=== PATIENT | female | born 2000 ===

== ENCOUNTER 2021-03-21 13:28 | Outpatient (REF) | payer BC, MEDICAID, SELFPAY ==
[2021-03-22 01:25] LABS: CT PCR NOT DETECTED (Not Detect.); NG PCR NOT DETECTED (Not Detect.)
[2021-03-22 08:03] LABS: HBc Num1 0.13 S/CO (0.00-0.79); HIV AB/AG Nonreactive (Nonreactive); HIV Num 1 0.09 S/CO (0.00-0.99); Hepatitis B Core Antibody Nonreactive (Nonreactive); ~HepC Num1 0.49 S/CO (0.00-0.79); ~Hepatitis C Antibody Nonreactive (Nonreactive)
[2021-03-22 08:09] LABS: Syphilis Screen Nonreactive (Nonreactive)
== END 2021-03-21 13:29 | disposition home or self-care (01) ==
LOC: HO.LAB 13:28
PROVIDERS: Advanced Practice Midwife; Visit Provider Advanced Practice Midwife
DX: Z01.419 Encounter for gynecological examination (general) (routine) without abnormal findings (principal); Z01.84 Encounter for antibody response examination; Z11.3 Encounter for screening for infections with a predominantly sexual mode of transmission; Z20.2 Contact with and (suspected) exposure to infections with a predominantly sexual mode of transmission
CPT/HCPCS: 36415; 86704; 86780; 86803; 87389; 87491; 87591; 88142

== ENCOUNTER → 2021-04-11 13:57 | Outpatient (BNVA) | payer BC, MEDICAID, SELFPAY | PROVIDERS: Visit Provider Advanced Practice Midwife | DX: Z30.46 Encounter for surveillance of implantable subdermal contraceptive (principal) | CPT/HCPCS: 11982 ==

== ENCOUNTER 2022-02-09 12:11 | Outpatient (REF) | payer MEDICAID, SELFPAY ==
[2022-02-09 14:38] LABS: Syphilis Screen Nonreactive (Nonreactive)
[2022-02-09 17:53] LABS: CT PCR NOT DETECTED (Not Detect.); NG PCR NOT DETECTED (Not Detect.)
[2022-02-10 15:13] LABS: BV Int Neg Control Negative (Negative); BV Int Pos Control Positive (Positive)
[2022-02-12 07:32] LABS: HBc Num1 0.15 S/CO (0.00-0.79); HIV AB/AG Nonreactive (Nonreactive); HIV Num 1 0.08 S/CO (0.00-0.99); Hepatitis B Core Antibody Nonreactive (Nonreactive); ~HepC Num1 0.16 S/CO (0.00-0.79); ~Hepatitis C Antibody Nonreactive (Nonreactive)
== END 2022-02-09 12:12 | disposition home or self-care (01) ==
LOC: HO.LAB 12:11
PROVIDERS: Visit Provider Advanced Practice Midwife
DX: Z01.419 Encounter for gynecological examination (general) (routine) without abnormal findings (principal); Z11.3 Encounter for screening for infections with a predominantly sexual mode of transmission; Z11.4 Encounter for screening for human immunodeficiency virus [HIV]; Z11.8 Encounter for screening for other infectious and parasitic diseases; Z11.59 Encounter for screening for other viral diseases
CPT/HCPCS: 36415; 86704; 86780; 86803; 87389; 87480; 87491; 87510; 87591; 87660; 99212

== ENCOUNTER 2022-09-20 16:20 | Emergency (ER) | payer OTHER, SELFPAY ==
[2022-09-20 16:31] VITALS: BP 147/78; PULSE 120; RESP 18; TEMP 37.1; O2SAT 97; BMI 23.6
--- NOTE | 2022-09-20 16:31 | ED.GENADULT ---
HPI - General Adult General Chief complaint: Skin/Abscess/Foreign Body Stated complaint: Rash all over body Time Seen by Provider: 09/20/22 16:36 Source: patient Mode of arrival: ambulatory History of Present Illness HPI narrative: 22yo F w/PMHx eczema, asthma/COPD, presenting to the ED c/o diffuse pruritic erythematous rash diffusely over body x few days. Admits has been worsening/spreading. Denies new medications, insect bites, new exposures/travel, SOB/sore throat, difficulty breathing Onset (ago): day(s) Related Data Previous Rx's Medication Instructions Recorded metronidazole 500 mg tablet 500 mg PO BID 7 days #14 tabs 02/12/22 cetirizine 10 mg capsule (Zyrtec) 10 mg PO DAILY 14 days #14 caps 09/20/22 doxycycline hyclate 100 mg tablet 100 mg PO BID 7 days #14 tabs 09/20/22 hydrocortisone 1 % topical 1 appl topical BID PRN skin 09/20/22 ointment (Anti-Itch irritation #453.6 grams (hydrocortisone)) ketorolac 10 mg tablet 10 mg PO TID PRN pain 5 days #15 09/20/22 tabs prednisone 10 mg tablet 10 mg PO DAILY #20 tabs 09/20/22 Allergies Allergy/AdvReac Type Severity Reaction Status Date / Time shellfish derived Allergy Severe ANAPHYLAXIS Verified 02/09/22 12:03 [SHELLFISH DERIVED] animal dander [PET DANDER] Allergy Unknown ANAPHYLAXIS Verified 02/09/22 12:03 Penicillins [PENICILLINS] Allergy Unknown ANAPHYLAXIS Verified 02/09/22 12:03 nuts Allergy Severe Anaphylaxis Uncoded 02/09/22 12:03 Review of Systems Review of Systems: Constitutional: No Fever, No Chills ENT/Mouth: No Ear Pain, No Nasal Congestion, No sore throat, No Rhinorrhea, No Swallowing Difficulty Cardiovascular: No Chest Pain, No SOB Respiratory: No Cough, No Sputum, No Wheezing Gastrointestinal: No Nausea, No Vomiting, No Abdominal pain Genitourinary: No Dysuria, No Urinary Frequency, No Hematuria, No Flank Pain Musculoskeletal: No joint pain, No Myalgias, No Joint Swelling Skin: No Skin Lesions, + rash Neuro: No Weakness, No Numbness, No Paresthesias Yes all other systems are reviewed and are negative Constitutional: Constitutional: Reports as per [facility] Past Medical History Attestation statement: The following information was validated with the patient. Medical History Asthma COPD (chronic obstructive pulmonary disease) Eczema IgA deficiency Social History Social History Alcohol intake: never Patient Tobacco Use Status: Never used Tobacco Advance Directives: No Advance Directives Information Provided: No Current occupational status: employed Sexual orientation: Straight/Heterosexual Gender identity: Female Physical Exam ED Vital Signs: Vital Signs - 24 hr 09/20/22 16:31 09/20/22 19:38 Temperature 98.7 F Pulse Rate 120 H 85 Respiratory Rate 18 18 Blood Pressure 147/78 H 129/70 Pulse Oximetry 97 100 Oxygen Delivery Method Room Air Room Air BMI result Body Mass Index 23.6 Const General: cooperative, healthy appearing and no acute distress Orientation/consciousness: patient oriented x3 Limitations: no limitations HENMT Head: Yes normal to inspection and Yes atraumatic Ears: hearing grossly normal bilaterally General nose exam: Normal external nose present Face and sinus: Yes normal facial exam Mouth: Normal oral and palatal mucosa present and no drooling Throat: Yes posterior oropharynx normal and Yes uvula midline Eyes General: appearance normal, both eyes and all related structures EOM: EOMs intact bilaterally Neck Neck: Yes normal visual inspection and Yes no meningeal signs Resp Effort & Inspection: normal respiratory effort and no respiratory distress Auscultation: clear to auscultation bilaterally and no wheezes Cardio Rate: tachycardic Heart sounds: S1 normal heart sound present and S2 normal heart sound present GI Palpation (GI): Soft to palpation and nontender Skin Other: +Diffuse erythematous rash with overlying excoriations noted. Diffuse dry skin/ flaking. No sloughing. No drainage. Bilateral lower extremities with erythema and warmth. No mucous membrane, palm or sole involvement Neuro General: patient oriented x3, tone normal and no meningeal signs Gait exam (Neuro): Normal gait present Extrem General: Yes normal to inspection Course Course Course Narrative: -1819-- noted leukocytosis of 14.5. Lactic acid negative. ESR/CRP WNL >> will give empiric IV doxycycline -2015-- vital signs and symptoms improving after IVF, Benadryl, and Solu-Medrol. Mother now at bedside, discussed results, and needed close follow-up with Dermatology. Results discussed with patient including worrisome signs and symptoms and strict return precautions, and when to return to the emergency department. They verbalized understanding and feel safe for discharge at this time. Medications Administered Discontinued Medications Generic Name Dose Route Start Last Admin Trade Name Mary PRN Reason Stop Dose Admin Diphenhydramine HCl 50 mg 09/20/22 16:50 09/20/22 17:06 Diphenhydramine Hcl 50 Mg/Ml Vial IVPUSH 09/20/22 16:51 50 mg ONCE ONE Administration Sodium Chloride 1,000 mls @ 999 mls/hr 09/20/22 17:00 09/20/22 18:49 Ns IV 09/20/22 18:00 Infused .Q1H1M FRANKI Infusion Doxycycline Hyclate 100 mg/ 250 mls @ 166.67 mls/hr 09/20/22 18:15 09/20/22 18:35 Sodium Chloride IV 09/20/22 19:44 166.67 mls/hr ONCE ONE Administration Sodium Chloride 1,000 mls @ 999 mls/hr 09/20/22 18:30 09/20/22 18:39 Ns IV 09/20/22 19:30 999 mls/hr .Q1H1M FRANKI Administration Ketorolac Tromethamine 15 mg 09/20/22 19:11 09/20/22 19:25 Ketorolac Tromethamine 15 Mg/Ml Vial IVPUSH 09/20/22 19:12 15 mg ONCE ONE Administration Methylprednisolone Sodium Succinate 125 mg 09/20/22 17:33 09/20/22 18:27 Methylprednisolone Sod Succ 125 Mg/2 Ml Vial IVPUSH 09/20/22 17:34 125 mg ONCE ONE Administration Medical Decision Making Medical Decision Making MDM Narrative: 22yo F w/PMHx eczema, asthma/COPD, presenting to the ED c/o diffuse pruritic erythematous rash diffusely over body x few days. On exam tachycardic likely from discomfort, physical exam as above. No mucous membrane, palm or sole involvement. No sloughing. Concern for eczema/psoriasis with overlying cellulitis to lower extremities. Low suspicion for severe sepsis at this time. low suspicion for SJS/TENS or viral rash Case discussed with Dr. Faust also evaluated patient and is in agreement with plan Plan: Labs, lactic/blood culture, IVF Please refer to course for remaining clinical decision making, interpretation of labs/imaging results, and discussions with consultants and/or family members. Differential Diagnosis Differential Diagnoses: The differential diagnosis associated with the presentation includes As above Admission/Observation Consideration of admission/observation: Escalation of care including admission/observation considered Consult Healthcare Provider Management of the patient was discussed with: Auto Design Checker Lab Data MDM Lab Attestation statement: I reviewed the patient's lab results. 09/20/22 17:00 09/20/22 17:00 Labs: Lab Results 09/20/22 09/20/22 09/20/22 Range/Units 17:00 17:00 17:00 WBC 14.5 H (4.8-10.8) X10*3/uL RBC 5.44 (4.20-5.50) X10*6/uL Hgb 14.0 (12.0-16.0) g/dl Hct 44.0 (37.0-47.0) % MCV 80.9 (80.0-98.0) fL MCH 25.7 L (27.0-33.0) pg MCHC 31.8 (31.0-35.0) g/dl RDW 14.5 (11.0-16.0) % Plt Count 422 H (160-400) X10*3/uL MPV 10.2 (9.4-12.3) fL Immature Gran % (Auto) 0.5 H (0.0-0.4) % Neut % (Auto) 75.2 H (45-73) % Lymph % (Auto) 12.6 L (20-40) % [place] % (Auto) 6.0 (2-11) % Eos % (Auto) 5.2 H (0-4) % Baso % (Auto) 0.5 (0-2) % Lymph # (Auto) 1.8 (1.2-4.9) X10*3/uL [place] # (Auto) 0.9 (0.1-1.2) X10*3/uL Eos # (Auto) 0.8 H (0.0-0.4) X10*3/uL Baso # (Auto) 0.1 (0.0-0.2) X10*3/uL Abs Immat Gran (auto) 0.07 H (0.00-0.03) X10*3/uL Absolute Neuts (auto) 10.9 H (2.0-8.3) x10*3/uL Absolute Nucleated RBC 0.000 (0.0-0.012) X10*3/uL Nucleated RBC % (auto) 0.0 (0.0-0.2) /100WBC ESR 2 (0-20) MM/HR Sodium 144 (135-145) mmol/L Potassium 3.8 (3.3-5.1) mmol/L Chloride 107 (96-108) mmol/L Carbon Dioxide 27 (22-29) mmol/L Anion Gap 14 (12-20) BUN 10 (9-16) mg/dL Creatinine 0.75 (0.5-1.4) mg/dL Estim Creat Clear Calc 88.7 Estimated GFR > 60 Random Glucose 75 (60-115) mg/dL Lactic Acid (0.5-2.0) mmol/L Calcium 9.3 (8.4-10.2) mg/dL Total Bilirubin 0.5 (0.0-1.0) mg/dL Direct Bilirubin < 0.2 (0.0-0.5) mg/dL AST 35 H (5-31) U/L ALT 27 (0-31) U/L Alkaline Phosphatase 65 (39-117) U/L C-Reactive Protein 0.48 (< or = 0.50) mg/dL Total Protein 7.2 (6.5-8.0) g/dL Albumin 4.1 (3.5-5.0) g/dL 09/20/22 Range/Units 17:00 WBC (4.8-10.8) X10*3/uL RBC (4.20-5.50) X10*6/uL Hgb (12.0-16.0) g/dl Hct (37.0-47.0) % MCV (80.0-98.0) fL MCH (27.0-33.0) pg MCHC (31.0-35.0) g/dl RDW (11.0-16.0) % Plt Count (160-400) X10*3/uL MPV (9.4-12.3) fL Immature Gran % (Auto) (0.0-0.4) % Neut % (Auto) (45-73) % Lymph % (Auto) (20-40) % [place] % (Auto) (2-11) % Eos % (Auto) (0-4) % Baso % (Auto) (0-2) % Lymph # (Auto) (1.2-4.9) X10*3/uL [place] # (Auto) (0.1-1.2) X10*3/uL Eos # (Auto) (0.0-0.4) X10*3/uL Baso # (Auto) (0.0-0.2) X10*3/uL Abs Immat Gran (auto) (0.00-0.03) X10*3/uL Absolute Neuts (auto) (2.0-8.3) x10*3/uL Absolute Nucleated RBC (0.0-0.012) X10*3/uL Nucleated RBC % (auto) (0.0-0.2) /100WBC ESR (0-20) MM/HR Sodium (135-145) mmol/L Potassium (3.3-5.1) mmol/L Chloride (96-108) mmol/L Carbon Dioxide (22-29) mmol/L Anion Gap (12-20) BUN (9-16) mg/dL Creatinine (0.5-1.4) mg/dL Estim Creat Clear Calc Estimated GFR Random Glucose (60-115) mg/dL Lactic Acid 1.4 (0.5-2.0) mmol/L Calcium (8.4-10.2) mg/dL Total Bilirubin (0.0-1.0) mg/dL Direct Bilirubin (0.0-0.5) mg/dL AST (5-31) U/L ALT (0-31) U/L Alkaline Phosphatase (39-117) U/L C-Reactive Protein (< or = 0.50) mg/dL Total Protein (6.5-8.0) g/dL Albumin (3.5-5.0) g/dL Radiology Impression Discussion of test interpretation with radiology: I have reviewed the radiologist's reading. External Record Review External record reviewed: Inpatient record, Office record, Outpatient record, Prior outpatient labs, Prior outpatient radiology, Primary care record and Outside ED record Discharge Plan Discharge Clinical Impression: Eczema, Cellulitis Patient Disposition: Home, Self-Care Instructions: Cellulitis (ED), Eczema (ED) Additional Instructions: you have a severe eczema / psoriasis rash. You have overlying cellulitis to her lower extremities. Doxycycline is an antibiotic please take as prescribed Prednisone as a steroid which will help with rash. Topical hydrocortisone is a topical steroid, apply to rash areas only, avoid application to face, hands, genital region and feet as potentially can discolored your skin. Ketorolac as an anti-inflammatory/ pain medication, take with food Zyrtec will also help with allergy symptoms you should also be taking Benadryl Prescriptions: New Zyrtec 10 mg capsule 10 mg PO DAILY 14 Days Qty: 14 0RF prednisone 10 mg tablet 10 mg PO DAILY Qty: 20 0RF Taper: Prednisone 40 mg daily for 3 Days and 0 Hour 30 mg daily for 3 Days and 0 Hour 20 mg daily for 3 Days and 0 Hour 10 mg daily for 3 Days and 0 Hour Rx Instructions: prednisone 10 mg: take 4 tablets (40 mg) for 2 days; 3 tablets (30 mg) for 2 days; 2 (20mg) tablets for 2 days and then 1 (10mg) tablet for 2 days ketorolac 10 mg tablet 10 mg PO TID PRN (Reason: pain) 5 Days Qty: 15 0RF hydrocortisone [Anti-Itch (HC)] 1 % ointment 1 appl topical BID PRN (Reason: skin irritation) Qty: 453.6 2RF Rx Instructions: Please avoid application to face, genital region, hand and feet as has potential to discolor skin doxycycline hyclate 100 mg tablet 100 mg PO BID 7 Days Qty: 14 0RF No Action metronidazole 500 mg tablet 500 mg PO BID 7 Days Qty: 14 0RF Rx Instructions: Take with food, Avoid alcohol and vinegar products Referrals: Brunilda Wilcox PA [Physician Control Systems Developer] - Donovan Campos MD [Physician] - Eliseo Lee MD [Physician] - Felecia Morgan PA [Physician Control Systems Developer] - Alfredo Galarza MD [Physician] - Dee Singh NP [Nurse Practitioner] - Venu Vazquez, MACHINE STONECUTTER-BC [Nurse Practitioner] - Keyla Muniz PA-C [Physician Control Systems Developer] -
[2022-09-20] MEDS: diphenhydrAMINE HCL 50 MG/ML VIAL IVPUSH (17:06)
[2022-09-20] MEDS: 0.9 % Sodium Chloride 1,000 ML 999 ML IV ×2 (17:08→18:39)
[2022-09-20 17:11] LABS: MANUAL DIFF FLAG NO
[2022-09-20 17:14] LABS: Basophils Absolute Auto 0.1 X10*3/uL (0.0-0.2); Basophils Percent Auto 0.5 % (0-2); Eosinophils Absolute Auto 0.8 X10*3/uL (0.0-0.4); Eosinophils Percent Auto 5.2 % (0-4); Imm Gran Abs Auto 0.07 X10*3/uL (0.00-0.03); Imm Gran Pct Auto 0.5 % (0.0-0.4); Lymphocytes Absolute Auto 1.8 X10*3/uL (1.2-4.9); Lymphocytes Percent Auto 12.6 % (20-40); Mean Corpuscular HGB Conc 31.8 g/dl (31.0-35.0); Mean Corpuscular Hemoglobin 25.7 pg (27.0-33.0); Mean Corpuscular Volume 80.9 fL (80.0-98.0); Mean Platelet Volume 10.2 fL (9.4-12.3); Monocytes Absolute Auto 0.9 X10*3/uL (0.1-1.2); Neutrophils Absolute Auto 10.9 x10*3/uL (2.0-8.3); Neutrophils Percent Auto 75.2 % (45-73); Platelet Count 422 X10*3/uL (160-400); Red Blood Count 5.44 X10*6/uL (4.20-5.50); Red Cell Distribution Width 14.5 % (11.0-16.0); White Blood Count 14.5 X10*3/uL (4.8-10.8)
[2022-09-20 17:25] LABS: Lactic Acid 1.4 mmol/L (0.5-2.0)
[2022-09-20 17:36] LABS: Alanine Aminotransferase 27 U/L (0-31); Albumin Level 4.1 g/dL (3.5-5.0); Alkaline Phosphatase 65 U/L (39-117); Anion Gap 14 (12-20); Aspartate Amino Transferase 35 U/L (5-31); Bilirubin Direct < 0.2 mg/dL (0.0-0.5); Bilirubin Total 0.5 mg/dL (0.0-1.0); Blood Urea Nitrogen 10 mg/dL (9-16); C Reactive Protein 0.48 mg/dL (< or = 0.50); Calcium 9.3 mg/dL (8.4-10.2); Carbon Dioxide 27 mmol/L (22-29); Chloride 107 mmol/L (96-108); Creatinine Clr Calc Pharmacy 88.7; Estimated Glomerular Filt Rate > 60; Glucose Random 75 mg/dL (60-115); Potassium 3.8 mmol/L (3.3-5.1); Sodium 144 mmol/L (135-145); Total Protein 7.2 g/dL (6.5-8.0)
[2022-09-20 18:15] LABS: Erythrocyte Sedimentation Rate 2 MM/HR (0-20)
[2022-09-20] MEDS: methylPREDNISolone Sod Succ 125 MG/2 ML VIAL IVPUSH (18:27)
[2022-09-20] MEDS: Doxycycline Hyclate 100 MG in 0.9 % Sodium Chloride 250 ML 166.67 MG IV (18:35)
[2022-09-20] MEDS: Ketorolac Tromethamine 15 MG/ML VIAL IVPUSH ×2 (19:25→20:29)
[2022-09-20 19:38] VITALS: BP 129/70; PULSE 85; RESP 18; O2SAT 100
== END 2022-09-20 20:48 | disposition home or self-care (01) ==
PROVIDERS: Physician Assistant; Emergency Provider Emergency Medicine
DX: L30.9 Dermatitis, unspecified (principal); L03.116 Cellulitis of left lower limb; L03.115 Cellulitis of right lower limb; J45.909 Unspecified asthma, uncomplicated
CPT/HCPCS: 36415; 80048; 80076; 83605; 85025; 85652; 86140; 87040; 96361; 96374; 96375; 96376; 99284; 99285; J1200; J1885; J2930

== ENCOUNTER 2022-10-05 17:28 | Emergency (ER) | payer OTHER, SELFPAY ==
--- NOTE | 2022-10-05 17:35 | ED.GENADULT ---
HPI - General Adult General Chief complaint: Skin/Abscess/Foreign Body <AYESHA Piña - Last Filed: 10/08/22 08:23> Stated complaint: Cellulitis <AYESHA Piña - Last Filed: 10/08/22 08:23> Time Seen by Provider: 10/05/22 20:04 <AYESHA Piña - Last Filed: 10/08/22 08:23> Source: patient <Jeevan El MD - Last Filed: 10/05/22 21:24> Mode of arrival: ambulatory <Jeevan El MD - Last Filed: 10/05/22 21:24> Limitations: no limitations <Jeevan El MD - Last Filed: 10/05/22 21:24> History of Present Illness HPI narrative: 32-year-old female presents with skin symptoms. She has been here 3 times now. She has a diffuse rash. Starting to crust over. It is pruritic in nature. Patient describes symptoms as severe. Patient has been on and off steroids and antibiotics which intermittently improve her symptoms. In she has had no fevers or chills. She does have COPD and relates to having some respiratory symptoms which are fairly common for her. She has no previous diagnosis of psoriasis or other skin related illness. <Jeevan El MD - Last Filed: 10/05/22 21:24> Related Data Home medications: Previous Rx's Medication Instructions Recorded metronidazole 500 mg tablet 500 mg PO BID 7 days #14 tabs 02/12/22 cetirizine 10 mg capsule (Zyrtec) 10 mg PO DAILY 14 days #14 caps 09/20/22 doxycycline hyclate 100 mg tablet 100 mg PO BID 7 days #14 tabs 09/20/22 hydrocortisone 1 % topical 1 appl topical BID PRN skin 09/20/22 ointment (Anti-Itch irritation #453.6 grams (hydrocortisone)) ketorolac 10 mg tablet 10 mg PO TID PRN pain 5 days #15 09/20/22 tabs prednisone 10 mg tablet 10 mg PO DAILY #20 tabs 09/20/22 hydroxyzine HCl 25 mg tablet 25 mg PO TID PRN itch #20 tabs 10/05/22 methylprednisolone 4 mg tablets in 4 mg PO DAILY #21 ea 10/05/22 a dose pack (Medrol (Kayden)) mupirocin 2 % topical ointment 1 appl topical BID #22 grams 10/05/22 <AYESHA Piña - Last Filed: 10/08/22 08:23> Allergies/adverse reactions: Allergies Allergy/AdvReac Type Severity Reaction Status Date / Time shellfish derived Allergy Severe ANAPHYLAXIS Verified 09/27/22 09:59 [SHELLFISH DERIVED] animal dander [PET DANDER] Allergy Unknown ANAPHYLAXIS Verified 09/27/22 09:59 Penicillins [PENICILLINS] Allergy Unknown ANAPHYLAXIS Verified 09/27/22 09:59 apples Allergy Severe Anaphylaxis Uncoded 09/27/22 10:09 nuts Allergy Severe Anaphylaxis Uncoded 02/09/22 12:03 <AYESHA Piña - Last Filed: 10/08/22 08:23> [facility] Past Medical History Medical History: Medical History ADHD Asthma Bipolar 2 disorder COPD (chronic obstructive pulmonary disease) Depression Eczema Generalized anxiety disorder IgA deficiency <AYESHA Piña - Last Filed: 10/08/22 08:23> Family History Family History: Family History Mother Nonalcoholic fatty liver HTN (hypertension) Maternal Aunt Ovarian cancer Maternal Uncle Liver cancer Other Mental health disorder <AYESHA Piña - Last Filed: 10/08/22 08:23> Social History Social History: Social History Household Members: Family Housing: House Alcohol intake: unknown Patient Tobacco Use Status: Never used Tobacco Smoked in Last 30 Days: No Use of substances other than those prescribed or required for medical reasons: Unknown Advance Directives: No Advance Directives Information Provided: No Patient : No Current occupational status: employed Sexual orientation: Straight/Heterosexual Gender identity: Female <AYESHA Piña - Last Filed: 10/08/22 08:23> Physical Exam ED Vital Signs: Vital Signs - 24 hr 10/05/22 17:36 10/05/22 20:00 Temperature 98.1 F 98.6 F Pulse Rate 76 90 Respiratory Rate 16 18 Blood Pressure 150/75 H 140/90 H Pulse Oximetry 100 100 Oxygen Delivery Method Room Air Room Air BMI result Body Mass Index 24.5 <AYESHA Piña - Last Filed: 10/08/22 08:23> Vital Signs - 24 hr 10/05/22 17:36 10/05/22 20:00 Temperature 98.1 F 98.6 F Pulse Rate 76 90 Respiratory Rate 16 18 Blood Pressure 150/75 H 140/90 H Pulse Oximetry 100 100 Oxygen Delivery Method Room Air Room Air BMI result Body Mass Index 24.5 <Jeevan El MD - Last Filed: 10/05/22 21:24> GEN: Well developed, no acute distress, alert, oriented HEENT: Normocephalic, atraumatic, normal external ears, nose appears normal Eyes: Normal to appearance Neck: Supple, no lymphadenopathy Respiratory: Talks in complete sentences, no respiratory distress, lungs clear to auscultation bilaterally Extremities: No clubbing cyanosis or edema Neurologic: No focal neurologic deficits, cranial nerves 2-12 intact, gait normal Skin: Diffuse erythematous rash with dry scan, areas of ichthyosis around the mouth and right ear. No mucosal involvement <Jeevan El MD - Last Filed: 10/05/22 21:24> Course Course Course Narrative: RME performed by Tosha Henao PA-C. Patient is a 22 year old assigned female at presenting to the emergency department with a diffuse rash. Patient was recently seen for cellulitis and eczema. Patient finished all of her previously prescribed medications 4 days ago and this new rash started 2 days ago. Patient has a supervisor shuttle preparation referall but needs to call to get an appointment. Labs ordered. Patient placed back in the waiting room pending room availability and results. <AYESHA Piña - Last Filed: 10/08/22 08:23> Reevaluation(s) Reevaluation #1: The workup is complete. I suspect patient has diffuse eczema versus other inflammatory skin condition. Unfortunately, patient has been on and off steroids. Patient may require a a long course of steroids. Will give her dexamethasone tonight as well as hydroxyzine. We have also discussed use of non scented soaps. Mariaelena self dry after shower or bath. Also use of mineral oil. She does have reported history of allergy to mineral oil. I have recommended to using non symptom mineral oil applying a very small patch on her skin to see if there is any reaction. Patient has been referred to a supervisor shuttle preparation but has not been able to obtain an appointment. <Jeevan El MD - Last Filed: 10/05/22 21:24> Time: 21:17 <Jeevan El MD - Last Filed: 10/05/22 21:24> Medications Administered Discontinued Medications Generic Name Dose Route Start Last Admin Trade Name Freq PRN Reason Stop Dose Admin Dexamethasone 10 mg 10/05/22 21:07 10/05/22 21:35 Dexamethasone 2 Mg Tablet PO 10/05/22 21:08 10 mg ONCE ONE Administration Hydroxyzine HCl 25 mg 10/05/22 21:07 10/05/22 21:35 Hydroxyzine Hcl 25 Mg Tablet PO 10/05/22 21:08 25 mg ONCE ONE Administration <AYESHA Piña - Last Filed: 10/08/22 08:23> Medications Administered Discontinued Medications Generic Name Dose Route Start Last Admin Trade Name Freq PRN Reason Stop Dose Admin Dexamethasone 10 mg 10/05/22 21:07 10/05/22 21:35 Dexamethasone 2 Mg Tablet PO 10/05/22 21:08 10 mg ONCE ONE Administration Hydroxyzine HCl 25 mg 10/05/22 21:07 10/05/22 21:35 Hydroxyzine Hcl 25 Mg Tablet PO 10/05/22 21:08 25 mg ONCE ONE Administration <Jeevan El MD - Last Filed: 10/05/22 21:24> Medical Decision Making Medical Decision Making [facility] Narrative: Patient has a generalized rash. Suspect eczema. There is no evidence of cellulitis. Will continue to treat with steroids. We discussed various techniques of treating her dry skin patient will be discharged at this time <Jeevan El MD - Last Filed: 10/05/22 21:24> Differential Diagnosis Differential Diagnoses: The differential diagnosis associated with the presentation includes (Eczema, cellulitis, psoriasis, Burkinan scabies, inflammatory skin condition, dermatitis) <Jeevan El MD - Last Filed: 10/05/22 21:24> Admission/Observation Consideration of admission/observation: Escalation of care including admission/observation considered <Jeevan lE MD - Last Filed: 10/05/22 21:24> Lab Data [facility] Lab Attestation statement: I reviewed the patient's lab results. <Jeevan El MD - Last Filed: 10/05/22 21:24> Result Diagrams: 10/05/22 17:51 10/05/22 17:51 <AYESHA Piña - Last Filed: 10/08/22 08:23> Labs: Lab Results 10/05/22 10/05/22 10/05/22 Range/Units 17:51 17:51 17:51 WBC 9.9 (4.8-10.8) X10*3/uL RBC 4.81 (4.20-5.50) X10*6/uL Hgb 12.4 (12.0-16.0) g/dl Hct 38.5 (37.0-47.0) % MCV 80.0 (80.0-98.0) fL MCH 25.8 L (27.0-33.0) pg MCHC 32.2 (31.0-35.0) g/dl RDW 14.6 (11.0-16.0) % Plt Count 303 D (160-400) X10*3/uL MPV 10.1 (9.4-12.3) fL Immature Gran % (Auto) 0.3 (0.0-0.4) % Neut % (Auto) 69.7 (45-73) % Lymph % (Auto) 13.2 L (20-40) % Leake % (Auto) 9.8 (2-11) % Eos % (Auto) 6.6 H (0-4) % Baso % (Auto) 0.4 (0-2) % Lymph # (Auto) 1.3 (1.2-4.9) X10*3/uL Leake # (Auto) 1.0 (0.1-1.2) X10*3/uL Eos # (Auto) 0.7 H (0.0-0.4) X10*3/uL Baso # (Auto) 0.0 (0.0-0.2) X10*3/uL Abs Immat Gran (auto) 0.03 (0.00-0.03) X10*3/uL Absolute Neuts (auto) 6.9 (2.0-8.3) x10*3/uL Absolute Nucleated RBC 0.000 (0.0-0.012) X10*3/uL Nucleated RBC % (auto) 0.0 (0.0-0.2) /100WBC ESR 6 (0-20) MM/HR Sodium 140 (135-145) mmol/L Potassium 4.1 (3.3-5.1) mmol/L Chloride 102 (96-108) mmol/L Carbon Dioxide 27 (22-29) mmol/L Anion Gap 15 (12-20) BUN 13 (9-16) mg/dL Creatinine 0.66 (0.5-1.4) mg/dL Estim Creat Clear Calc 110.2 Estimated GFR > 60 Random Glucose 87 (60-115) mg/dL Calcium 9.5 (8.4-10.2) mg/dL Magnesium 1.7 (1.6-2.6) mg/dL Total Bilirubin 1.3 H (0.0-1.0) mg/dL AST 35 H (5-31) U/L ALT 31 (0-31) U/L Alkaline Phosphatase 63 (39-117) U/L C-Reactive Protein 0.59 H (< or = 0.50) mg/dL Total Protein 7.2 (6.5-8.0) g/dL Albumin 4.5 (3.5-5.0) g/dL COVID-19 ([facility]) (Negative) COVID-19 Clin Com Influenza Type A ([facility]ISSATOU) (Negative) Influenza Type B (AISSATOU) (Negative) Influenza A & B Note S. pyogenes GrpA AISSATOU (Negative) 10/05/22 10/05/22 10/05/22 Range/Units 20:04 20:05 20:05 WBC (4.8-10.8) X10*3/uL RBC (4.20-5.50) X10*6/uL Hgb (12.0-16.0) g/dl Hct (37.0-47.0) % MCV (80.0-98.0) fL MCH (27.0-33.0) pg MCHC (31.0-35.0) g/dl RDW (11.0-16.0) % Plt Count (160-400) X10*3/uL MPV (9.4-12.3) fL Immature Gran % (Auto) (0.0-0.4) % Neut % (Auto) (45-73) % Lymph % (Auto) (20-40) % Leake % (Auto) (2-11) % Eos % (Auto) (0-4) % Baso % (Auto) (0-2) % Lymph # (Auto) (1.2-4.9) X10*3/uL Leake # (Auto) (0.1-1.2) X10*3/uL Eos # (Auto) (0.0-0.4) X10*3/uL Baso # (Auto) (0.0-0.2) X10*3/uL Abs Immat Gran (auto) (0.00-0.03) X10*3/uL Absolute Neuts (auto) (2.0-8.3) x10*3/uL Absolute Nucleated RBC (0.0-0.012) X10*3/uL Nucleated RBC % (auto) (0.0-0.2) /100WBC ESR (0-20) MM/HR Sodium (135-145) mmol/L Potassium (3.3-5.1) mmol/L Chloride (96-108) mmol/L Carbon Dioxide (22-29) mmol/L Anion Gap (12-20) BUN (9-16) mg/dL Creatinine (0.5-1.4) mg/dL Estim Creat Clear Calc Estimated GFR Random Glucose (60-115) mg/dL Calcium (8.4-10.2) mg/dL Magnesium (1.6-2.6) mg/dL Total Bilirubin (0.0-1.0) mg/dL AST (5-31) U/L ALT (0-31) U/L Alkaline Phosphatase (39-117) U/L C-Reactive Protein (< or = 0.50) mg/dL Total Protein (6.5-8.0) g/dL Albumin (3.5-5.0) g/dL COVID-19 ([facility]) Negative (Negative) COVID-19 Clin Com See Note Influenza Type A ([facility]ISSATOU) Negative (Negative) Influenza Type B (AISSATOU) Negative (Negative) Influenza A & B Note See Note S. pyogenes GrpA AISSATOU Negative (Negative) <AYESHA Piña - Last Filed: 10/08/22 08:23> Lab Results 10/05/22 10/05/22 10/05/22 Range/Units 17:51 17:51 17:51 WBC 9.9 (4.8-10.8) X10*3/uL RBC 4.81 (4.20-5.50) X10*6/uL Hgb 12.4 (12.0-16.0) g/dl Hct 38.5 (37.0-47.0) % MCV 80.0 (80.0-98.0) fL MCH 25.8 L (27.0-33.0) pg MCHC 32.2 (31.0-35.0) g/dl RDW 14.6 (11.0-16.0) % Plt Count 303 D (160-400) X10*3/uL MPV 10.1 (9.4-12.3) fL Immature Gran % (Auto) 0.3 (0.0-0.4) % Neut % (Auto) 69.7 (45-73) % Lymph % (Auto) 13.2 L (20-40) % Leake % (Auto) 9.8 (2-11) % Eos % (Auto) 6.6 H (0-4) % Baso % (Auto) 0.4 (0-2) % Lymph # (Auto) 1.3 (1.2-4.9) X10*3/uL Leake # (Auto) 1.0 (0.1-1.2) X10*3/uL Eos # (Auto) 0.7 H (0.0-0.4) X10*3/uL Baso # (Auto) 0.0 (0.0-0.2) X10*3/uL Abs Immat Gran (auto) 0.03 (0.00-0.03) X10*3/uL Absolute Neuts (auto) 6.9 (2.0-8.3) x10*3/uL Absolute Nucleated RBC 0.000 (0.0-0.012) X10*3/uL Nucleated RBC % (auto) 0.0 (0.0-0.2) /100WBC ESR 6 (0-20) MM/HR Sodium 140 (135-145) mmol/L Potassium 4.1 (3.3-5.1) mmol/L Chloride 102 (96-108) mmol/L Carbon Dioxide 27 (22-29) mmol/L Anion Gap 15 (12-20) BUN 13 (9-16) mg/dL Creatinine 0.66 (0.5-1.4) mg/dL Estim Creat Clear Calc 110.2 Estimated GFR > 60 Random Glucose 87 (60-115) mg/dL Calcium 9.5 (8.4-10.2) mg/dL Magnesium 1.7 (1.6-2.6) mg/dL Total Bilirubin 1.3 H (0.0-1.0) mg/dL AST 35 H (5-31) U/L ALT 31 (0-31) U/L Alkaline Phosphatase 63 (39-117) U/L C-Reactive Protein 0.59 H (< or = 0.50) mg/dL Total Protein 7.2 (6.5-8.0) g/dL Albumin 4.5 (3.5-5.0) g/dL COVID-19 ([facility]) (Negative) COVID-19 Clin Com Influenza Type A ([facility]ISS[facility]OU) (Negative) Influenza Type B ([facility]OU) (Negative) Influenza A & B Note S. pyogenes GrpA AISS[facility]OU (Negative) 10/05/22 10/05/22 10/05/22 Range/Units 20:04 20:05 20:05 WBC (4.8-10.8) X10*3/uL RBC (4.20-5.50) X10*6/uL Hgb (12.0-16.0) g/dl Hct (37.0-47.0) % MCV (80.0-98.0) fL MCH (27.0-33.0) pg MCHC (31.0-35.0) g/dl RDW (11.0-16.0) % Plt Count (160-400) X10*3/uL MPV (9.4-12.3) fL Immature Gran % (Auto) (0.0-0.4) % Neut % (Auto) (45-73) % Lymph % (Auto) (20-40) % Leake % (Auto) (2-11) % Eos % (Auto) (0-4) % Baso % (Auto) (0-2) % Lymph # (Auto) (1.2-4.9) X10*3/uL Leake # (Auto) (0.1-1.2) X10*3/uL Eos # (Auto) (0.0-0.4) X10*3/uL Baso # (Auto) (0.0-0.2) X10*3/uL Abs Immat Gran (auto) (0.00-0.03) X10*3/uL Absolute Neuts (auto) (2.0-8.3) x10*3/uL Absolute Nucleated RBC (0.0-0.012) X10*3/uL Nucleated RBC % (auto) (0.0-0.2) /100WBC ESR (0-20) MM/HR Sodium (135-145) mmol/L Potassium (3.3-5.1) mmol/L Chloride (96-108) mmol/L Carbon Dioxide (22-29) mmol/L Anion Gap (12-20) BUN (9-16) mg/dL Creatinine (0.5-1.4) mg/dL Estim Creat Clear Calc Estimated GFR Random Glucose (60-115) mg/dL Calcium (8.4-10.2) mg/dL Magnesium (1.6-2.6) mg/dL Total Bilirubin (0.0-1.0) mg/dL AST (5-31) U/L ALT (0-31) U/L Alkaline Phosphatase (39-117) U/L C-Reactive Protein (< or = 0.50) mg/dL Total Protein (6.5-8.0) g/dL Albumin (3.5-5.0) g/dL COVID-19 ([facility]) Negative (Negative) COVID-19 Clin Com See Note Influenza Type A ([facility]) Negative (Negative) Influenza Type B ([facility]) Negative (Negative) Influenza A & B Note See Note S. pyogenes GrpA [facility] Negative (Negative) <Jeevan El MD - Last Filed: 10/05/22 21:24> Prescription Management I considered prescription management with: Pain Medication and Antibiotic <Jeevan El MD - Last Filed: 10/05/22 21:24> Discharge Plan Discharge Clinical Impression: Eczema, Impetigo <AYESHA Piña - Last Filed: 10/08/22 08:23> Patient Disposition: Home, Self-Care <AYESHA Piña - Last Filed: 10/08/22 08:23> Instructions: Impetigo (ED), Dermatitis (ED) <AYESHA Piña - Last Filed: 10/08/22 08:23> Additional Instructions: Invading, use unscented soaps that her gentle on the skin. Pat yourself dry. If you find that your not allergic to unscented mineral oil, apply thin layer after bathing. <AYESHA Piña - Last Filed: 10/08/22 08:23> Prescriptions: New methylprednisolone [Medrol (Kayden)] 4 mg tablets,dose pack 4 mg PO DAILY Qty: 21 0RF hydroxyzine HCl 25 mg tablet 25 mg PO TID PRN (Reason: itch) Qty: 20 0RF mupirocin 2 % ointment 1 appl topical BID Qty: 22 0RF No Action metronidazole 500 mg tablet 500 mg PO BID 7 Days Qty: 14 0RF Rx Instructions: Take with food, Avoid alcohol and vinegar products Zyrtec 10 mg capsule 10 mg PO DAILY 14 Days Qty: 14 0RF prednisone 10 mg tablet 10 mg PO DAILY Qty: 20 0RF Taper: Prednisone 40 mg daily for 3 Days and 0 Hour 30 mg daily for 3 Days and 0 Hour 20 mg daily for 3 Days and 0 Hour 10 mg daily for 3 Days and 0 Hour Rx Instructions: prednisone 10 mg: take 4 tablets (40 mg) for 2 days; 3 tablets (30 mg) for 2 days; 2 (20mg) tablets for 2 days and then 1 (10mg) tablet for 2 days ketorolac 10 mg tablet 10 mg PO TID PRN (Reason: pain) 5 Days Qty: 15 0RF hydrocortisone [Anti-Itch (HC)] 1 % ointment 1 appl topical BID PRN (Reason: skin irritation) Qty: 453.6 2RF Rx Instructions: Please avoid application to face, genital region, hand and feet as has potential to discolor skin doxycycline hyclate 100 mg tablet 100 mg PO BID 7 Days Qty: 14 0RF <AYESHA Piña - Last Filed: 10/08/22 08:23> Interventions: ED Discharge Assessment Last Done: 10/05/22 22:10 <AYESHA Piña - Last Filed: 10/08/22 08:23> Discharge Date/Time: 10/05/22 22:00 <AYESHA Piña - Last Filed: 10/08/22 08:23>
[2022-10-05 17:36] VITALS: BP 150/75; PULSE 76; RESP 16; TEMP 36.7; O2SAT 100; BMI 24.5
[2022-10-05 17:56] LABS: Basophils Percent Auto 0.4 % (0-2); Eosinophils Absolute Auto 0.7 X10*3/uL (0.0-0.4); Eosinophils Percent Auto 6.6 % (0-4); Hematocrit 38.5 % (37.0-47.0); Hemoglobin 12.4 g/dl (12.0-16.0); Imm Gran Abs Auto 0.03 X10*3/uL (0.00-0.03); Imm Gran Pct Auto 0.3 % (0.0-0.4); Lymphocytes Absolute Auto 1.3 X10*3/uL (1.2-4.9); Lymphocytes Percent Auto 13.2 % (20-40); MANUAL DIFF FLAG NO; Mean Corpuscular HGB Conc 32.2 g/dl (31.0-35.0); Mean Corpuscular Hemoglobin 25.8 pg (27.0-33.0); Mean Platelet Volume 10.1 fL (9.4-12.3); Monocytes Percent Auto 9.8 % (2-11); Neutrophils Absolute Auto 6.9 x10*3/uL (2.0-8.3); Neutrophils Percent Auto 69.7 % (45-73); Platelet Count 303 X10*3/uL (160-400); Red Blood Count 4.81 X10*6/uL (4.20-5.50); Red Cell Distribution Width 14.6 % (11.0-16.0); White Blood Count 9.9 X10*3/uL (4.8-10.8)
[2022-10-05 18:22] LABS: Alanine Aminotransferase 31 U/L (0-31); Albumin Level 4.5 g/dL (3.5-5.0); Alkaline Phosphatase 63 U/L (39-117); Anion Gap 15 (12-20); Aspartate Amino Transferase 35 U/L (5-31); Bilirubin Total 1.3 mg/dL (0.0-1.0); Blood Urea Nitrogen 13 mg/dL (9-16); C Reactive Protein 0.59 mg/dL (< or = 0.50); Calcium 9.5 mg/dL (8.4-10.2); Carbon Dioxide 27 mmol/L (22-29); Chloride 102 mmol/L (96-108); Creatinine Clr Calc Pharmacy 110.2; Estimated Glomerular Filt Rate > 60; Glucose Random 87 mg/dL (60-115); Magnesium 1.7 mg/dL (1.6-2.6); Potassium 4.1 mmol/L (3.3-5.1); Sodium 140 mmol/L (135-145); Total Protein 7.2 g/dL (6.5-8.0)
[2022-10-05 18:29] LABS: Erythrocyte Sedimentation Rate 6 MM/HR (0-20)
[2022-10-05 20:00] VITALS: BP 140/90; PULSE 90; RESP 18; TEMP 37; O2SAT 100
[2022-10-05 20:27] LABS: COVID-19 Test Negative (Negative); IDNOW Serial# 9DB6401D; IDNOW Serial# BCCEAD1C; Influenza A Negative (Negative); Influenza B2 Negative (Negative)
[2022-10-05 20:38] LABS: IDNOW Serial# 6674DD1D; Strep A Nucleic Acid Negative (Negative)
[2022-10-05] MEDS: dexAMETHasone 2 MG TABLET 10 MG PO (21:35)
[2022-10-05] MEDS: hydrOXYzine HCL 25 MG TABLET PO (21:35)
== END 2022-10-05 22:00 | disposition home or self-care (01) ==
PROVIDERS: Physician Assistant Medical; Emergency Provider Emergency Medicine; PCP Nurse Practitioner Family
DX: L01.1 Impetiginization of other dermatoses (principal); Z20.822 Contact with and (suspected) exposure to COVID-19
CPT/HCPCS: 36415; 80053; 83735; 85025; 85652; 86140; 87502; 87635; 87651; 99283; 99284; J8540

== ENCOUNTER 2022-10-15 15:56 | Emergency (ER) | payer OTHER, SELFPAY ==
[2022-10-15 15:59] VITALS: BP 140/67; PULSE 85; RESP 16; TEMP 36.7; O2SAT 99; BMI 25.4
--- NOTE | 2022-10-15 16:02 | ED_ITS ---
HPI - General Adult General Chief complaint: Skin/Abscess/Foreign Body <AYESHA Cruz - Last Filed: 10/15/22 20:42> Stated complaint: body rash <AYESHA Cruz - Last Filed: 10/15/22 20:42> Time Seen by Provider: 10/15/22 16:53 <AYESHA Cruz - Last Filed: 10/15/22 20:42> Source: patient <Dahlia Rodriguez MD - Last Filed: 10/15/22 20:21> Mode of arrival: ambulatory <Dahlia Rodriguez MD - Last Filed: 10/15/22 20:21> History of Present Illness HPI narrative: 22-year-old female without significant past medical history presents with severely worsening rash for which she has been treated a couple of times here in the emergency room and discharged with steroids as well as topical antibiotics. She reports chills and denies any recent medications. Patient states that she has seen her primary care provider and she did recommend referral to Dermatology but there next appointment is months away. <Dahlia Rodriguez MD - Last Filed: 10/15/22 20:21> Related Data Home medications: Previous Rx's Medication Instructions Recorded metronidazole 500 mg tablet 500 mg PO BID 7 days #14 tabs 02/12/22 cetirizine 10 mg capsule (Zyrtec) 10 mg PO DAILY 14 days #14 caps 09/20/22 doxycycline hyclate 100 mg tablet 100 mg PO BID 7 days #14 tabs 09/20/22 hydrocortisone 1 % topical 1 appl topical BID PRN skin 09/20/22 ointment (Anti-Itch irritation #453.6 grams (hydrocortisone)) ketorolac 10 mg tablet 10 mg PO TID PRN pain 5 days #15 09/20/22 tabs prednisone 10 mg tablet 10 mg PO DAILY #20 tabs 09/20/22 hydroxyzine HCl 25 mg tablet 25 mg PO TID PRN itch #20 tabs 10/05/22 methylprednisolone 4 mg tablets in 4 mg PO DAILY #21 ea 10/05/22 a dose pack (Medrol (Kayden)) mupirocin 2 % topical ointment 1 appl topical BID #22 grams 10/05/22 doxycycline monohydrate 100 mg 100 mg PO BID 5 days #10 caps 10/15/22 capsule prednisone 10 mg tablet 10 mg PO DAILY 30 days #30 tabs 10/15/22 <AYESHA Cruz - Last Filed: 10/15/22 20:42> Allergies/adverse reactions: Allergies Allergy/AdvReac Type Severity Reaction Status Date / Time shellfish derived Allergy Severe ANAPHYLAXIS Verified 09/27/22 09:59 [SHELLFISH DERIVED] animal dander [PET DANDER] Allergy Unknown ANAPHYLAXIS Verified 09/27/22 09:59 Penicillins [PENICILLINS] Allergy Unknown ANAPHYLAXIS Verified 09/27/22 09:59 apples Allergy Severe Anaphylaxis Uncoded 09/27/22 10:09 nuts Allergy Severe Anaphylaxis Uncoded 02/09/22 12:03 <AYESHA Cruz - Last Filed: 10/15/22 20:42> Review of Systems Review of Systems: Pertinent positives and negatives as stated in HPI <Dahlia Rodriguez MD - Last Filed: 10/15/22 20:21> PMFSH Past Medical History Source: nursing notes reviewed <Dahlia Rodriguez MD - Last Filed: 10/15/22 20:21> Medical History: Medical History ADHD Asthma Bipolar 2 disorder COPD (chronic obstructive pulmonary disease) Depression Eczema Generalized anxiety disorder IgA deficiency <AYESHA Cruz - Last Filed: 10/15/22 20:42> Family History Family History: Family History Mother Nonalcoholic fatty liver HTN (hypertension) Maternal Aunt Ovarian cancer Maternal Uncle Liver cancer Other Mental health disorder <AYESHA Cruz - Last Filed: 10/15/22 20:42> Social History Social History: Social History Household Members: Family Housing: House Alcohol intake: unknown Patient Tobacco Use Status: Never used Tobacco Advance Directives: No Advance Directives Information Provided: No Current occupational status: employed Sexual orientation: Straight/Heterosexual Gender identity: Female <AYESHA Cruz - Last Filed: 10/15/22 20:42> Physical Exam ED Vital Signs: Vital Signs - 24 hr 10/15/22 15:59 Temperature 98.0 F Pulse Rate 85 Respiratory Rate 16 Blood Pressure 140/67 H Pulse Oximetry 99 Oxygen Delivery Method Room Air BMI result Body Mass Index 25.4 <AYESHA Cruz - Last Filed: 10/15/22 20:42> Vital Signs - 24 hr 10/15/22 15:59 Temperature 98.0 F Pulse Rate 85 Respiratory Rate 16 Blood Pressure 140/67 H Pulse Oximetry 99 Oxygen Delivery Method Room Air BMI result Body Mass Index 25.4 VITAL SIGNS: Reviewed. GENERAL: Well developed, well nourished, in no acute distress. HEAD: Normocephalic/atraumatic EYES: PERRLA, EOMI EARS: Ext canals with mildly edematous external ear, no TMs non-bulging and non- erythematous NOSE: Nares patent bilateral OROPHARYNX: no oral lesions noted, posterior pharynx clear NECK: Supple, no adenopathy LUNGS: Normal breath sounds. No adventitious sounds or accessory muscle use. SpO2<99> CARDIOVASCULAR: Regular rate and rhythm without noted murmurs ABDOMEN: Soft, non-tender, non-distended with bowel sounds. MUSCULOSKELETAL: No tenderness, deformities, or effusions noted on gross inspection. EXTREMITIES: No cyanosis, clubbing or edema. SKIN: Inspection of the skin reveals extensive rash from hairline down to the dorsum of feet, does not involve palm sore soles but there are noted cracks in the skin along the neck as well as bilateral antecubital areas peer NEUROLOGIC: Alert and oriented x 4. Strength and sensation to light touch were grossly intact x 4. <Dahlia Rodriguez MD - Last Filed: 10/15/22 20:21> Course Course Course Narrative: RME: 22 yold female presents to the ED for worsening eczema of skin. patie nt has diffuse generalized ezcema rash and no improvement on steroids/antibiotics. <AYESHA Cruz - Last Filed: 10/15/22 20:42> Medications Administered Discontinued Medications Generic Name Dose Route Start Last Admin Trade Name Freq PRN Reason Stop Dose Admin Doxycycline Monohydrate 100 mg 10/15/22 20:09 10/15/22 20:37 Doxycycline Monohydrate 100 Mg Capsule PO 10/15/22 20:10 100 mg ONCE ONE Administration Prednisone 50 mg 10/15/22 20:09 10/15/22 20:36 Prednisone 10 Mg Tablet PO 10/15/22 20:10 50 mg ONCE ONE Administration <AYESHA Cruz - Last Filed: 10/15/22 20:42> Medications Administered Discontinued Medications Generic Name Dose Route Start Last Admin Trade Name Mary PRN Reason Stop Dose Admin Doxycycline Monohydrate 100 mg 10/15/22 20:09 10/15/22 20:37 Doxycycline Monohydrate 100 Mg Capsule PO 10/15/22 20:10 100 mg ONCE ONE Administration Prednisone 50 mg 10/15/22 20:09 10/15/22 20:36 Prednisone 10 Mg Tablet PO 10/15/22 20:10 50 mg ONCE ONE Administration <Dahlia Rodriguez MD - Last Filed: 10/15/22 20:21> Medical Decision Making Medical Decision Making MDM Narrative: 22-year-old female with history and clinical presentation unclear whether not psoriasis given the extensive presentation of the rash verses possible extensive eczema. On review of all investigations my interpretation is this presentation is likely more consistent with uncontrolled eczema. Patient will need to see a screw machine operator swiss type and will discuss with the patient that she does have access to a nurse navigator through her current primary care provider. This individual will likely be able to escalate evaluation by dermatology. Patient will receive 50 mg of prednisone here in the emergency room and then be started on a low level course until she is able to be seen by Dermatology. She was given strict instructions regarding abruptly stopping the medication. I copied my note over to her primary care provider. Patient is aware of all results and findings, she will also be started on a short course of prophylactic antibiotics given the skin breaks. <Dahlia Rodriguez MD - Last Filed: 10/15/22 20:21> Differential Diagnosis Please see the discussion above <Dahlia Rodriguez MD - Last Filed: 10/15/22 20:21> Lab Data Please see the discussion above <Dahlia Rodriguez MD - Last Filed: 10/15/22 20:21> Result Diagrams: 10/15/22 17:48 10/15/22 17:48 <AYESHA Cruz - Last Filed: 10/15/22 20:42> Labs: Lab Results 10/15/22 10/15/22 10/15/22 Range/Units 17:48 17:48 17:48 WBC 13.2 H (4.8-10.8) X10*3/uL RBC 4.91 (4.20-5.50) X10*6/uL Hgb 12.7 (12.0-16.0) g/dl Hct 39.2 (37.0-47.0) % MCV 79.8 L (80.0-98.0) fL MCH 25.9 L (27.0-33.0) pg MCHC 32.4 (31.0-35.0) g/dl RDW 14.6 (11.0-16.0) % Plt Count 419 H D (160-400) X10*3/uL MPV 10.3 (9.4-12.3) fL Immature Gran % (Auto) 0.3 (0.0-0.4) % Neut % (Auto) 71.7 (45-73) % Lymph % (Auto) 13.5 L (20-40) % Dewitt % (Auto) 4.5 (2-11) % Eos % (Auto) 9.8 H (0-4) % Baso % (Auto) 0.2 (0-2) % Lymph # (Auto) 1.8 (1.2-4.9) X10*3/uL Dewitt # (Auto) 0.6 (0.1-1.2) X10*3/uL Eos # (Auto) 1.3 H (0.0-0.4) X10*3/uL Baso # (Auto) 0.0 (0.0-0.2) X10*3/uL Abs Immat Gran (auto) 0.04 H (0.00-0.03) X10*3/uL Absolute Neuts (auto) 9.4 H (2.0-8.3) x10*3/uL Absolute Nucleated RBC 0.000 (0.0-0.012) X10*3/uL Nucleated RBC % (auto) 0.0 (0.0-0.2) /100WBC ESR 2 (0-20) MM/HR Sodium 143 (135-145) mmol/L Potassium 4.1 (3.3-5.1) mmol/L Chloride 106 (96-108) mmol/L Carbon Dioxide 28 (22-29) mmol/L Anion Gap 13 (12-20) BUN 11 (9-16) mg/dL Creatinine 0.87 (0.5-1.4) mg/dL Estim Creat Clear Calc 85.1 Estimated GFR > 60 Random Glucose 86 (60-115) mg/dL Lactic Acid (0.5-2.0) mmol/L Calcium 9.2 (8.4-10.2) mg/dL Total Bilirubin 1.1 H (0.0-1.0) mg/dL AST 24 (5-31) U/L ALT 25 (0-31) U/L Alkaline Phosphatase 66 (39-117) U/L C-Reactive Protein 0.60 H (< or = 0.50) mg/dL Total Protein 7.0 (6.5-8.0) g/dL Albumin 4.4 (3.5-5.0) g/dL Rheumatoid Factor < 13.0 (<15.0) IU/mL COVID-19 ([facility]) (Negative) COVID-19 Clin Com 10/15/22 10/15/22 Range/Units 19:02 19:02 WBC (4.8-10.8) X10*3/uL RBC (4.20-5.50) X10*6/uL Hgb (12.0-16.0) g/dl Hct (37.0-47.0) % MCV (80.0-98.0) fL MCH (27.0-33.0) pg MCHC (31.0-35.0) g/dl RDW (11.0-16.0) % Plt Count (160-400) X10*3/uL MPV (9.4-12.3) fL Immature Gran % (Auto) (0.0-0.4) % Neut % (Auto) (45-73) % Lymph % (Auto) (20-40) % Dewitt % (Auto) (2-11) % Eos % (Auto) (0-4) % Baso % (Auto) (0-2) % Lymph # (Auto) (1.2-4.9) X10*3/uL Dewitt # (Auto) (0.1-1.2) X10*3/uL Eos # (Auto) (0.0-0.4) X10*3/uL Baso # (Auto) (0.0-0.2) X10*3/uL Abs Immat Gran (auto) (0.00-0.03) X10*3/uL Absolute Neuts (auto) (2.0-8.3) x10*3/uL Absolute Nucleated RBC (0.0-0.012) X10*3/uL Nucleated RBC % (auto) (0.0-0.2) /100WBC ESR (0-20) MM/HR Sodium (135-145) mmol/L Potassium (3.3-5.1) mmol/L Chloride (96-108) mmol/L Carbon Dioxide (22-29) mmol/L Anion Gap (12-20) BUN (9-16) mg/dL Creatinine (0.5-1.4) mg/dL Estim Creat Clear Calc Estimated GFR Random Glucose (60-115) mg/dL Lactic Acid 1.2 (0.5-2.0) mmol/L Calcium (8.4-10.2) mg/dL Total Bilirubin (0.0-1.0) mg/dL AST (5-31) U/L ALT (0-31) U/L Alkaline Phosphatase (39-117) U/L C-Reactive Protein (< or = 0.50) mg/dL Total Protein (6.5-8.0) g/dL Albumin (3.5-5.0) g/dL Rheumatoid Factor (<15.0) IU/mL COVID-19 ([facility]) Negative (Negative) COVID-19 Clin Com See Note <AYESHA Cruz - Last Filed: 10/15/22 20:42> Lab Results 10/15/22 10/15/22 10/15/22 Range/Units 17:48 17:48 17:48 WBC 13.2 H (4.8-10.8) X10*3/uL RBC 4.91 (4.20-5.50) X10*6/uL Hgb 12.7 (12.0-16.0) g/dl Hct 39.2 (37.0-47.0) % MCV 79.8 L (80.0-98.0) fL MCH 25.9 L (27.0-33.0) pg MCHC 32.4 (31.0-35.0) g/dl RDW 14.6 (11.0-16.0) % Plt Count 419 H D (160-400) X10*3/uL MPV 10.3 (9.4-12.3) fL Immature Gran % (Auto) 0.3 (0.0-0.4) % Neut % (Auto) 71.7 (45-73) % Lymph % (Auto) 13.5 L (20-40) % Dewitt % (Auto) 4.5 (2-11) % Eos % (Auto) 9.8 H (0-4) % Baso % (Auto) 0.2 (0-2) % Lymph # (Auto) 1.8 (1.2-4.9) X10*3/uL Dewitt # (Auto) 0.6 (0.1-1.2) X10*3/uL Eos # (Auto) 1.3 H (0.0-0.4) X10*3/uL Baso # (Auto) 0.0 (0.0-0.2) X10*3/uL Abs Immat Gran (auto) 0.04 H (0.00-0.03) X10*3/uL Absolute Neuts (auto) 9.4 H (2.0-8.3) x10*3/uL Absolute Nucleated RBC 0.000 (0.0-0.012) X10*3/uL Nucleated RBC % (auto) 0.0 (0.0-0.2) /100WBC ESR 2 (0-20) MM/HR Sodium 143 (135-145) mmol/L Potassium 4.1 (3.3-5.1) mmol/L Chloride 106 (96-108) mmol/L Carbon Dioxide 28 (22-29) mmol/L Anion Gap 13 (12-20) BUN 11 (9-16) mg/dL Creatinine 0.87 (0.5-1.4) mg/dL Estim Creat Clear Calc 85.1 Estimated GFR > 60 Random Glucose 86 (60-115) mg/dL Lactic Acid (0.5-2.0) mmol/L Calcium 9.2 (8.4-10.2) mg/dL Total Bilirubin 1.1 H (0.0-1.0) mg/dL AST 24 (5-31) U/L ALT 25 (0-31) U/L Alkaline Phosphatase 66 (39-117) U/L C-Reactive Protein 0.60 H (< or = 0.50) mg/dL Total Protein 7.0 (6.5-8.0) g/dL Albumin 4.4 (3.5-5.0) g/dL Rheumatoid Factor < 13.0 (<15.0) IU/mL COVID-19 ([facility]) (Negative) COVID-19 Clin Com 10/15/22 10/15/22 Range/Units 19:02 19:02 WBC (4.8-10.8) X10*3/uL RBC (4.20-5.50) X10*6/uL Hgb (12.0-16.0) g/dl Hct (37.0-47.0) % MCV (80.0-98.0) fL MCH (27.0-33.0) pg MCHC (31.0-35.0) g/dl RDW (11.0-16.0) % Plt Count (160-400) X10*3/uL MPV (9.4-12.3) fL Immature Gran % (Auto) (0.0-0.4) % Neut % (Auto) (45-73) % Lymph % (Auto) (20-40) % Dewitt % (Auto) (2-11) % Eos % (Auto) (0-4) % Baso % (Auto) (0-2) % Lymph # (Auto) (1.2-4.9) X10*3/uL Dewitt # (Auto) (0.1-1.2) X10*3/uL Eos # (Auto) (0.0-0.4) X10*3/uL Baso # (Auto) (0.0-0.2) X10*3/uL Abs Immat Gran (auto) (0.00-0.03) X10*3/uL Absolute Neuts (auto) (2.0-8.3) x10*3/uL Absolute Nucleated RBC (0.0-0.012) X10*3/uL Nucleated RBC % (auto) (0.0-0.2) /100WBC ESR (0-20) MM/HR Sodium (135-145) mmol/L Potassium (3.3-5.1) mmol/L Chloride (96-108) mmol/L Carbon Dioxide (22-29) mmol/L Anion Gap (12-20) BUN (9-16) mg/dL Creatinine (0.5-1.4) mg/dL Estim Creat Clear Calc Estimated GFR Random Glucose (60-115) mg/dL Lactic Acid 1.2 (0.5-2.0) mmol/L Calcium (8.4-10.2) mg/dL Total Bilirubin (0.0-1.0) mg/dL AST (5-31) U/L ALT (0-31) U/L Alkaline Phosphatase (39-117) U/L C-Reactive Protein (< or = 0.50) mg/dL Total Protein (6.5-8.0) g/dL Albumin (3.5-5.0) g/dL Rheumatoid Factor (<15.0) IU/mL COVID-19 ([facility]) Negative (Negative) COVID-19 Clin Com See Note <Dahlia Rodriguez MD - Last Filed: 10/15/22 20:21> Independent Interpretation I performed an independent interpretation of an: EKG <Dahlia Rodriguez MD - Last Filed: 10/15/22 20:21> External Record Review External record reviewed: Outpatient record and Prior outpatient labs <Dahlia Rodriguez MD - Last Filed: 10/15/22 20:21> Discharge Plan Discharge Clinical Impression: Eczema <AYESHA Cruz - Last Filed: 10/15/22 20:42> Patient Disposition: Home, Self-Care <AYESHA Cruz - Last Filed: 10/15/22 20:42> Instructions: Eczema (ED), Dermatitis (ED) <AYESHA Cruz - Last Filed: 10/15/22 20:42> Additional Instructions: 1. You have been started on a low-dose steroid that you should continue until you are evaluated by dermatology. DO NOT under any circumstances abruptly stop the steroid as this may cause a dangerous withdrawal reaction. 2. You will be placed on antibiotics for 5 days until the cracks in your skin begin to improve. 3. Please follow all recommendations regarding control of eczema which include minimizing showers throughout the week, temperature of showers, and I highly recommend the use of Vaseline to help moisturize the skin. 4. Follow-up with your primary care provider by calling the office 1st thing in the morning and asking for your nurse navigator as this individual can significantly help you and arranging for an earlier dermatologic appointment. Return to the ER for any worsening symptoms <AYESHA Cruz - Last Filed: 10/15/22 20:42> Prescriptions: New doxycycline monohydrate 100 mg capsule 100 mg PO BID 5 Days Qty: 10 0RF prednisone 10 mg tablet 10 mg PO DAILY 30 Days Qty: 30 0RF No Action metronidazole 500 mg tablet 500 mg PO BID 7 Days Qty: 14 0RF Rx Instructions: Take with food, Avoid alcohol and vinegar products Zyrtec 10 mg capsule 10 mg PO DAILY 14 Days Qty: 14 0RF prednisone 10 mg tablet 10 mg PO DAILY Qty: 20 0RF Taper: Prednisone 40 mg daily for 3 Days and 0 Hour 30 mg daily for 3 Days and 0 Hour 20 mg daily for 3 Days and 0 Hour 10 mg daily for 3 Days and 0 Hour Rx Instructions: prednisone 10 mg: take 4 tablets (40 mg) for 2 days; 3 tablets (30 mg) for 2 days; 2 (20mg) tablets for 2 days and then 1 (10mg) tablet for 2 days ketorolac 10 mg tablet 10 mg PO TID PRN (Reason: pain) 5 Days Qty: 15 0RF hydrocortisone [Anti-Itch (HC)] 1 % ointment 1 appl topical BID PRN (Reason: skin irritation) Qty: 453.6 2RF Rx Instructions: Please avoid application to face, genital region, hand and feet as has potential to discolor skin doxycycline hyclate 100 mg tablet 100 mg PO BID 7 Days Qty: 14 0RF methylprednisolone [Medrol (Kayden)] 4 mg tablets,dose pack 4 mg PO DAILY Qty: 21 0RF hydroxyzine HCl 25 mg tablet 25 mg PO TID PRN (Reason: itch) Qty: 20 0RF mupirocin 2 % ointment 1 appl topical BID Qty: 22 0RF <AYESHA Cruz - Last Filed: 10/15/22 20:42> Interventions: ED Discharge Assessment Last Done: 10/15/22 20:38 <AYESHA Cruz - Last Filed: 10/15/22 20:42> Discharge Date/Time: 10/15/22 20:40 <AYESHA Cruz - Last Filed: 10/15/22 20:42>
[2022-10-15 17:53] LABS: MANUAL DIFF FLAG NO
[2022-10-15 17:55] LABS: Basophils Percent Auto 0.2 % (0-2); Eosinophils Absolute Auto 1.3 X10*3/uL (0.0-0.4); Eosinophils Percent Auto 9.8 % (0-4); Hematocrit 39.2 % (37.0-47.0); Hemoglobin 12.7 g/dl (12.0-16.0); Imm Gran Abs Auto 0.04 X10*3/uL (0.00-0.03); Imm Gran Pct Auto 0.3 % (0.0-0.4); Lymphocytes Absolute Auto 1.8 X10*3/uL (1.2-4.9); Lymphocytes Percent Auto 13.5 % (20-40); Mean Corpuscular HGB Conc 32.4 g/dl (31.0-35.0); Mean Corpuscular Hemoglobin 25.9 pg (27.0-33.0); Mean Corpuscular Volume 79.8 fL (80.0-98.0); Mean Platelet Volume 10.3 fL (9.4-12.3); Monocytes Absolute Auto 0.6 X10*3/uL (0.1-1.2); Monocytes Percent Auto 4.5 % (2-11); Neutrophils Absolute Auto 9.4 x10*3/uL (2.0-8.3); Neutrophils Percent Auto 71.7 % (45-73); Platelet Count 419 X10*3/uL (160-400); Red Blood Count 4.91 X10*6/uL (4.20-5.50); Red Cell Distribution Width 14.6 % (11.0-16.0); White Blood Count 13.2 X10*3/uL (4.8-10.8)
[2022-10-15 18:09] LABS: Alanine Aminotransferase 25 U/L (0-31); Albumin Level 4.4 g/dL (3.5-5.0); Alkaline Phosphatase 66 U/L (39-117); Anion Gap 13 (12-20); Aspartate Amino Transferase 24 U/L (5-31); Bilirubin Total 1.1 mg/dL (0.0-1.0); Blood Urea Nitrogen 11 mg/dL (9-16); Calcium 9.2 mg/dL (8.4-10.2); Carbon Dioxide 28 mmol/L (22-29); Chloride 106 mmol/L (96-108); Creatinine Clr Calc Pharmacy 85.1; Estimated Glomerular Filt Rate > 60; Glucose Random 86 mg/dL (60-115); Potassium 4.1 mmol/L (3.3-5.1); Sodium 143 mmol/L (135-145)
[2022-10-15 18:34] LABS: Rheumatoid Factor < 13.0 IU/mL (<15.0)
[2022-10-15 18:40] LABS: Erythrocyte Sedimentation Rate 2 MM/HR (0-20)
[2022-10-15 19:21] LABS: Lactic Acid 1.2 mmol/L (0.5-2.0)
[2022-10-15 19:26] LABS: COVID-19 Test Negative (Negative); IDNOW Serial# 08D9AD1C
[2022-10-15] MEDS: predniSONE 10 MG TABLET 50 MG PO (20:36)
[2022-10-15] MEDS: Doxycycline Monohydrate 100 MG CAPSULE PO (20:37)
== END 2022-10-15 20:40 | disposition home or self-care (01) ==
PROVIDERS: Emergency Provider Student in an Organized Health Care Education/Training Program
DX: L30.9 Dermatitis, unspecified (principal); Z20.822 Contact with and (suspected) exposure to COVID-19; Z20.828 Contact with and (suspected) exposure to other viral communicable diseases; Z79.899 Other long term (current) drug therapy
CPT/HCPCS: 36415; 80053; 83605; 85025; 85652; 86140; 86431; 87635; 99282; 99283

== ENCOUNTER 2022-11-19 17:56 | Emergency (ER) | payer OTHER, SELFPAY ==
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
[2022-11-19 18:17] VITALS: BP 141/72; PULSE 64; RESP 16; TEMP 36.6; O2SAT 100; BMI 24.5
[2022-11-19] MEDS: Acetaminophen 325 MG TABLET 650 MG PO (19:32)
--- NOTE | 2022-11-19 19:46 | PC.NURSE ---
patient medicated per MAR.
== END 2022-11-19 21:55 | disposition home or self-care (01) ==
PROVIDERS: Emergency Provider Emergency Medicine
DX: S33.5XXA Sprain of ligaments of lumbar spine, initial encounter (principal); S09.90XA Unspecified injury of head, initial encounter; R51.9 Headache, unspecified; M54.2 Cervicalgia; V43.62XA Car passenger injured in collision with other type car in traffic accident, initial encounter; Y93.9 Activity, unspecified; Y92.410 Unspecified street and highway as the place of occurrence of the external cause; Y99.9 Unspecified external cause status; Z79.899 Other long term (current) drug therapy
CPT/HCPCS: 70450; 72100; 99283; 99284

== ENCOUNTER 2022-12-25 13:10 | Outpatient (REF) | payer OTHER, SELFPAY | END 2022-12-25 13:11 | disposition home or self-care (01) | LOC: HO.LNP 13:10 | PROVIDERS: PCP Physician Assistant; Visit Provider Advanced Practice Midwife | DX: Z13.89 Encounter for screening for other disorder (principal) ==

== ENCOUNTER 2022-12-25 13:44 | Outpatient (REF) | payer OTHER, SELFPAY ==
[2022-12-25 17:19] LABS: CT PCR NOT DETECTED (Not Detect.); NG PCR NOT DETECTED (Not Detect.)
[2022-12-26 04:09] LABS: Syphilis Screen Nonreactive (Nonreactive)
[2022-12-26 04:36] LABS: HBc Num1 0.12 S/CO (0.00-0.79); HIV AB/AG Nonreactive (Nonreactive); HIV Num 1 0.07 S/CO (0.00-0.99); Hepatitis B Core Antibody Nonreactive (Nonreactive); ~HepC Num1 0.17 S/CO (0.00-0.79); ~Hepatitis C Antibody Nonreactive (Nonreactive)
== END 2022-12-25 13:45 | disposition home or self-care (01) ==
LOC: HO.LAB 13:44
PROVIDERS: PCP Physician Assistant; Visit Provider Advanced Practice Midwife
DX: Z11.4 Encounter for screening for human immunodeficiency virus [HIV] (principal); Z20.2 Contact with and (suspected) exposure to infections with a predominantly sexual mode of transmission
CPT/HCPCS: 0353U; 86704; 86780; 86803; 87389

== ENCOUNTER 2022-12-25 17:47 | Outpatient (REF) | payer OTHER, SELFPAY | END 2022-12-25 17:48 | disposition home or self-care (01) | LOC: HO.LNP 17:47 | PROVIDERS: Visit Provider Advanced Practice Midwife | DX: Z13.89 Encounter for screening for other disorder (principal) ==

== ENCOUNTER 2023-04-11 14:58 | Outpatient (AMB) | payer OTHER, SELFPAY ==
--- NOTE | 2023-04-11 15:01 | MHC.OFFVIS ---
Intake Vital Signs 04/11/23 15:02 Height 5 ft 3 in Weight 154 lb BMI 27.3 BP 102/54 L Intake Visit Reasons: control consult Intake Note: The patient agreed to use of a medical office specialist during this encounter. Scribed for TIFFANY Metcalf by Savannah Mosquera medical office specialist, on 04/11/2023 at 3:13 pm EST. Block Breaker Operator Required: No Allergies shellfish derived [SHELLFISH DERIVED] Allergy (Severe, Verified 04/11/23 15:05) ANAPHYLAXIS animal dander [PET DANDER] Allergy (Unknown, Verified 04/11/23 15:05) ANAPHYLAXIS Penicillins [PENICILLINS] Allergy (Unknown, Verified 04/11/23 15:05) ANAPHYLAXIS apples Allergy (Severe, Uncoded 04/11/23 15:05) Anaphylaxis nuts Allergy (Severe, Uncoded 04/11/23 15:05) Anaphylaxis Is last menstrual period known: Yes Last menstrual period: 04/06/23 Post menopausal: No HPI HPI Comments History of Present Illness Details She is here today for BC consult. Reports UPI and spotting in between menses during middle of March. Has used Nexplanon in the past with no complaints. History of IgA deficiency, see's specialist in [place]. She denies any contraindications to control such as: migraines with aura, history of DVT or pulmonary emboli, high blood pressure, liver disease, thrombolic disorders, Lupus, +MONICA, or smoking. [facility] Medical History ADHD Generalized anxiety disorder Depression Bipolar 2 disorder Eczema Asthma COPD (chronic obstructive pulmonary disease) IgA deficiency Family History Mother Nonalcoholic fatty liver HTN (hypertension) Maternal Aunt Ovarian cancer Maternal Uncle Liver cancer Maternal Aunt Diabetes Other Mental health disorder Social History Household Members: Family Housing: House Alcohol intake: current Alcohol intake frequency: a few times a month Patient Tobacco Use Status: Never used Tobacco Use of substances other than those prescribed or required for medical reasons: Yes Substance Use Type: Marijuana Current occupational status: employed Sexual orientation: Straight/Heterosexual Gender identity: Female Female Reproductive History Menstrual Age of Menarche: 11 Duration of menses: 6-7 days Date of last menstrual period: 04/06/23 control method: none Total pregnancies: 0 Date of last pap smear: 03/22/21 (negative) Physical Exam Vital Signs: Last Vital Signs BP 102/54 L 04/11/23 15:02 BMI result Body Mass Index 27.3 Const General: cooperative, healthy appearing, comfortable, no acute distress, well developed, alert and awake Other: General: Yes bladder normal to palpation External Female Exam: normal external appearance and normal appearance of the urethra Speculum Exam - Vagina: normal appearance of the vagina, normal palpation and normal vaginal discharge Speculum Exam - Cervix: normal appearance of the cervix and normal palpation Bimanual exam- vagina & uterus: normal bimanual exam, normal palpation, bladder normal to palpation and normal palpation Bimanual Exam- Adnexa, other: normal adnexae and no masses Assessment & Plan Assessment & Plan (1) control counseling: Code(s): Z30.09 - Encounter for other general counseling and advice on contraception Plan: Discussed: Reviewed different BC options. Pt is considering Nexplanon. Plan review of medical literature on IGA deficiency starting BC. Advised condoms for now, consider ParaGard non hormonal as a option. CDC guidelines on family planning methods were given for review. Release records from Volunteer Coordinator, and request for medical clearance. All of her questions and concerns were addressed to the best of my ability and shared decision making. She is agreeable to plan of care. (2) Potential exposure to STD: Code(s): Z20.2 - Contact with and (suspected) exposure to infections with a predominantly sexual mode of transmission Plan: BV testing and GC/CT panel done today. Await results and treat accordingly. Encouraged to use condoms for STD and prevention. (3) Irregular menses: Code(s): N92.6 - Irregular menstruation, unspecified Orders: Orders Bacterial Vaginosis Panel 04/11/23 Z20.2 - Contact with and (suspected) exposure to infections with a predominantly sexual mode of transmission CT NG by PCR 04/11/23 Z20.2 - Contact with and (suspected) exposure to infections with a predominantly sexual mode of transmission AMB HCG Urine Test 04/11/23 Z32.02 - Encounter for test, result negative Coding Level of Care Code Est Pt Level 3 (02174) Diagnoses control counseling Z30.09 Potential exposure to STD Z20.2 Irregular menses N92.6
[2023-04-11 15:02] VITALS: BP 102/54; BMI 27.3
== END 2023-04-11 15:52 | disposition home or self-care (01) ==
PROVIDERS: PCP Physician Assistant; Visit Provider Advanced Practice Midwife
DX: Z30.09 Encounter for other general counseling and advice on contraception (principal); Z20.2 Contact with and (suspected) exposure to infections with a predominantly sexual mode of transmission; N92.6 Irregular menstruation, unspecified
CPT/HCPCS: 99213

== ENCOUNTER 2023-04-11 14:58 | Outpatient (REF) | payer OTHER, SELFPAY | END 2023-04-11 14:59 | disposition home or self-care (01) | LOC: HO.LNP 14:58 | PROVIDERS: PCP Physician Assistant; Visit Provider Advanced Practice Midwife | DX: N92.6 Irregular menstruation, unspecified (principal); Z30.09 Encounter for other general counseling and advice on contraception; Z20.2 Contact with and (suspected) exposure to infections with a predominantly sexual mode of transmission | CPT/HCPCS: 0353U; 87480; 87510; 87660; 99212 ==

== ENCOUNTER → 2023-04-12 10:06 | Outpatient (BNV) | payer OTHER, SELFPAY | PROVIDERS: PCP Physician Assistant; Visit Provider Advanced Practice Midwife | DX: Z32.02 Encounter for pregnancy test, result negative (principal) | CPT/HCPCS: 81025 ==

== ENCOUNTER → 2023-06-05 10:48 | Outpatient (BNV) | payer OTHER, SELFPAY ==
--- NOTE | 2023-06-05 10:48 | MHC.OFFVIS ---
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 did preg test yesterday was negative. eating alot feel hot and cold, pain in lower pelvic area male partner- 2 months, no control. 'supposed to get implanon' - doctor canceled and they haven't rescheduled it. was going [facility]. ( don't see missed appt for implanon, but do see gardnerella positive). she is in bathroom, when out, states tthat she hasn't picked up the medicaiton yet. doesn't want to use the vaginal medication, but will leaf size picker the meds today [facility] (mistaken discussion about gonorrhea - resolved). long conversation about treatment and condom use and getting implanon inserted. if no menses in 1 week, return for test again. teary visit - she appears very stressed out . she is calm and smiling when departs [facility] Medical History IgA nephropathy ADHD Generalized anxiety disorder Depression Bipolar 2 disorder Eczema Asthma COPD (chronic obstructive pulmonary disease) IgA deficiency Family History Mother Nonalcoholic fatty liver HTN (hypertension) Maternal Aunt Ovarian cancer Maternal Uncle Liver cancer Maternal Aunt Diabetes Other Mental health disorder Social History Household Members: Family Housing: House Alcohol intake: current Alcohol intake frequency: a few times a month Patient Tobacco Use Status: Never used Tobacco Use of substances other than those prescribed or required for medical reasons: Yes Substance Use Type: Marijuana Current occupational status: employed Sexual orientation: Straight/Heterosexual Gender identity: Female Female Reproductive History Menstrual Age of Menarche: 11 Review of Systems Const Details: Counseling visit: All systems reviewed & are unremarkable except as noted in HPI and below Reports as per HPI Resp Reports as per HPI GI Reports as per HPI Musc Reports as per HPI Neuro Reports as per HPI Psych Reports as per HPI Physical Exam Const General: cooperative, healthy appearing and no acute distress Nutritional Appearance: well nourished Orientation/consciousness: oriented to person Limitations: no limitations HEENT Other: wnl Eyes Other: wnl Chest Other: easy breathing Resp Effort & Inspection: able to speak in complete sentences Skin Other: normal in appearance Neuro General: oriented to person Psych Other: see HPI Mental Status: mental status grossly normal Speech and movement: Clear speech present Attitude: cooperative Thought process: Normal thought process present Assessment & Plan Assessment & Plan (1) control counseling: Code(s): Z30.09 - Encounter for other general counseling and advice on contraception (2) Irregular menses: Code(s): N92.6 - Irregular menstruation, unspecified Plan extensive counseling done. discussion re: condoms and implanon. she is going to pharmacy today to leaf size picker the meds for BV. She will call the office to get appt for implanon scheduled. Orders: Orders AMB HCG Urine Test Today N92.6 - Irregular menstruation, unspecified, Z32.02 - Encounter for test, result negative Coding Level of Care Code Est Pt Level 4 (89683) Diagnoses control counseling Z30.09 Irregular menses N92.6 Time Spent (min) 35 Comment extensive counseling and support
== END ==
PROVIDERS: PCP Physician Assistant; Visit Provider Nurse Practitioner Family
DX: Z30.09 Encounter for other general counseling and advice on contraception (principal); N92.6 Irregular menstruation, unspecified
CPT/HCPCS: 99214

== ENCOUNTER 2023-08-07 07:47 | Outpatient (AMB) | payer OTHER, SELFPAY ==
[2023-08-07 07:59] VITALS: BP 112/66; BMI 26.6
--- NOTE | 2023-08-07 07:59 | A.OFFVIS_ITS ---
Intake Vital Signs 08/07/23 07:59 Height 5 ft 3 in Weight 150 lb BMI 26.6 BP 112/66 Intake Visit Reasons: control consult Photocopying Machine Operator: Photocopying Machine Operator Present Allergies shellfish derived [SHELLFISH DERIVED] Allergy (Severe, Verified 08/07/23 07:59) ANAPHYLAXIS animal dander [PET DANDER] Allergy (Unknown, Verified 08/07/23 07:59) ANAPHYLAXIS Penicillins [PENICILLINS] Allergy (Unknown, Verified 08/07/23 07:59) ANAPHYLAXIS apples Allergy (Severe, Uncoded 04/11/23 15:05) Anaphylaxis nuts Allergy (Severe, Uncoded 04/11/23 15:05) Anaphylaxis Is last menstrual period known: Yes Last menstrual period: 07/09/23 HPI HPI Comments History of Present Illness Details Patient is here today for control consult. She has a history of IgA neuropathy. Seen by Dr. Lai. She reports her creatinine labs were better than expected last time. Currently using condoms. Has regular menses. Has used the Nexplanon in the past and strongly considering that device or an IUD, her sister has the Mirena and really likes it. She denies any contraindications to control such as: migraines with aura, history of DVT or pulmonary emboli, high blood pressure, liver disease, thrombolic disorders, Lupus, +MONICA, breast cancer, or smoking. [facility] Medical History IgA nephropathy ADHD Generalized anxiety disorder Depression Bipolar 2 disorder Eczema Asthma COPD (chronic obstructive pulmonary disease) IgA deficiency Family History Mother Nonalcoholic fatty liver HTN (hypertension) Maternal Aunt Ovarian cancer Maternal Uncle Liver cancer Maternal Aunt Diabetes Other Mental health disorder Social History Household Members: Family Housing: House Alcohol intake: current Alcohol intake frequency: a few times a month Patient Tobacco Use Status: Never used Tobacco Substance Use Type: Marijuana Current occupational status: employed Sexual orientation: Straight/Heterosexual Gender identity: Female Female Reproductive History Menstrual Age of Menarche: 11 Duration of menses: 3-5 days Date of last menstrual period: 07/09/23 control method: none Review of Systems Const All systems reviewed & are unremarkable except as noted in HPI and below Endo Reports no additional complaints Physical Exam Vital Signs: Last Vital Signs BP 112/66 08/07/23 07:59 BMI result Body Mass Index 26.6 Const General: cooperative, healthy appearing and no acute distress Psych Appearance: well kempt Attitude: cooperative Thought process: Normal thought process present Assessment & Plan Assessment & Plan (1) control counseling: Code(s): Z30. - Encounter for other general counseling and advice on contraception Plan Control Counseling Concerns for hypertension with renal disease and use of estrogen. Use and side effects of control: Discussed all options for methods she is either interested in the Nexplanon or the IUD. Always use condoms for STI prevention if indicated. Instructed patient to take for at least 3 months the body is acclimated to it. Most side effects go away with time in the first three months. Commonly br eakthrough bleeding, which lessens with time. Use of the CBCs efficacy chart displayed. Handouts on Mirena and Kyleena given. She is leaning towards having the Mirena IUD. Advised to call in the 1st 5 days of her menstrual cycle for insertion, no unprotected intimacy continued use of condoms for now. Use of Tylenol an hour before insertion and also to eat and drink prior to coming in for her a ppointment. Warnings: loss of vision/blindness, severe headache, chest pain or difficulty breathing, severe abdominal pain, or any pain or swelling in an extremity. All of her questions and concerns were addressed to the best of my ability and shared decision making. She is agreeable to plan of care. Coding Level of Care Code Est Pt Level 3 (99110) Diagnoses control counseling Z
== END 2023-08-07 08:53 | disposition home or self-care (01) ==
PROVIDERS: PCP Physician Assistant; Visit Provider Advanced Practice Midwife
DX: Z30.09 Encounter for other general counseling and advice on contraception (principal)
CPT/HCPCS: 99213

== ENCOUNTER → 2023-08-07 07:47 | Outpatient (BNVA) | payer OTHER, SELFPAY | PROVIDERS: PCP Physician Assistant; Visit Provider Advanced Practice Midwife | DX: Z30.09 Encounter for other general counseling and advice on contraception (principal) | CPT/HCPCS: 99212 ==

== ENCOUNTER 2023-12-31 14:31 | Outpatient (AMB) | payer OTHER, SELFPAY ==
[2023-12-31 14:32] VITALS: BP 120/72; BMI 25.7
--- NOTE | 2023-12-31 14:32 | MHC.OFFVIS ---
Vital Signs 12/31/23 14:32 Height 5 ft 3 in Weight 145 lb 4 oz BMI 25.7 BP 120/72 Blood Pressure Location Rt brachial Position Sitting Intake Visit Reasons: CREDIT AUTHORIZER annual exam Allergies shellfish derived [SHELLFISH DERIVED] Allergy (Severe, Verified 12/31/23 14:35) ANAPHYLAXIS animal dander [PET DANDER] Allergy (Unknown, Verified 12/31/23 14:35) ANAPHYLAXIS Penicillins [PENICILLINS] Allergy (Unknown, Verified 12/31/23 14:35) ANAPHYLAXIS apples Allergy (Severe, Uncoded 12/31/23 14:35) Anaphylaxis nuts Allergy (Severe, Uncoded 12/31/23 14:35) Anaphylaxis Is last menstrual period known: Yes Last menstrual period: 12/08/23 HPI Comments Details: She is a premenopausal woman presenting for annual examination. Doing well with no concerns. She tries to eat healthy and stays active with exercise. Regular monthly menses. Currently is not sexually active. She denies vaginal itching and irritation. STI screening offered; she accepts. Denies family history of breast or colon cancer. FH ovarian cancer, M. aunt. Last pap smear 2020, negative. Sees a gripper attacher for her eczema. [facility] Medical History IgA nephropathy ADHD Generalized anxiety disorder Depression Bipolar 2 disorder Eczema Asthma COPD (chronic obstructive pulmonary disease) IgA deficiency Family History Mother Nonalcoholic fatty liver HTN (hypertension) Maternal Aunt Ovarian cancer Maternal Uncle Liver cancer Maternal Aunt Diabetes Other Mental health disorder Social History Household Members: Family Housing: House Alcohol intake: current Alcohol intake frequency: a few times a month Patient Tobacco Use Status: Never used Tobacco Substance Use Type: Marijuana Current occupational status: employed Sexual orientation: Straight/Heterosexual Gender identity: Female Female Reproductive History Menstrual Age of Menarche: 11 Duration of menses: 3-5 days Date of last menstrual period: 12/08/23 control method: none Date of last pap smear: 03/22/21 History of abnormal pap smear: No History of STI: No Review of Systems Const All systems reviewed & are unremarkable except as noted in HPI and below Reports as per HPI Eyes Reports no additional complaints ENT Reports no additional complaints Card Reports no additional complaints Resp Reports no additional complaints GI Reports as per HPI and Reports no additional complaints Reports as per HPI Musc Reports no additional complaints Skin/Breast Reports as per HPI Neuro Reports no additional complaints Psych Reports no additional complaints Endo Reports no additional complaints Christo/Lymph Reports no additional complaints Aller/Immun Reports no additional complaints Physical Exam Vital Signs: Last Vital Signs BP 120/72 12/31/23 14:32 BMI result Body Mass Index 25.7 Const General: cooperative, healthy appearing, no acute distress, well developed and alert Orientation/consciousness: patient oriented x3 HEENT Head: Yes normal to inspection Eyes General: appearance normal, both eyes and all related structures Neck Neck: Yes normal visual inspection Thyroid: Thyroid normal Chest Chest palpation & inspection: normal inspection of the chest and other (no puckering, dimpling, peau de orange, retraction, discharge, masses) Breast/axilla inspection: normal inspection of the breasts Breast/axilla palpation: normal palpation of the breasts Resp Effort & Inspection: normal respiratory effort GI Inspection: Yes normal to inspection Palpation (GI): Soft to palpation Rectal Exam - Female: deferred General: Yes bladder normal to palpation External Female Exam: normal external appearance and normal appearance of the urethra Speculum Exam - Vagina: normal appearance of the vagina, normal palpation and normal vaginal discharge Speculum Exam - Cervix: normal appearance of the cervix, normal palpation and Other cervical findings present (Bled slightly with Pap) Bimanual exam- vagina & uterus: normal bimanual exam, normal palpation, uterine size normal, bladder normal to palpation, normal palpation and non-tender Bimanual Exam- Adnexa, other: no masses Skin General skin exam: dry skin Rashes: rashes noted (Eczema) Neuro General: patient oriented x3 Cognition (Neuro): normal cognition Extrem General: Yes normal to inspection Psych Attitude: cooperative Thought process: Normal thought process present Assessment & Plan Assessment & Plan (1) Encounter for well woman exam with routine gynecological exam: Code(s): Z01.419 - Encounter for gynecological examination (general) (routine) without abnormal findings Category: Medical Plan Discussed: Current recommendations for pap smears per ASCCP guidelines. Breast awareness and periodic breast exams. Maintain a healthy lifestyle including a well balanced diet and routine exercise. Use condoms for STI and prevention. Plans Mirena IUD if needs control in the future will notify the office for a follow up. Obtain lab work today. Patient verbalizes understanding and agrees to the plan of care. She was given opportunity to ask questions and all questions were answered to the best of my ability. RTO in one year for annual obstetrics gynecology physician examination. This note is constructed using voice recognition software. While every effort has been made to ensure accuracy, director volunteer services errors may have been included. Orders: Orders Hepatitis C Antibody Reflex Today Z20.2 - Contact with and (suspected) exposure to infections with a predominantly sexual mode of transmission Hepatitis B Core Antibody Today Z20.2 - Contact with and (suspected) exposure to infections with a predominantly sexual mode of transmission HIV Ab/Ag Today Z20.2 - Contact with and (suspected) exposure to infections with a predominantly sexual mode of transmission Syphilis Screen Today Z20.2 - Contact with and (suspected) exposure to infections with a predominantly sexual mode of transmission Coding Level of Care Code Est Pt Prev Care 18-39y(45412) Diagnoses Encounter for well woman exam with routine gynecological exam Z01.419
== END 2023-12-31 15:15 | disposition home or self-care (01) ==
PROVIDERS: PCP Internal Medicine; Visit Provider Advanced Practice Midwife
DX: Z01.419 Encounter for gynecological examination (general) (routine) without abnormal findings (principal)
CPT/HCPCS: 99395

== ENCOUNTER 2023-12-31 14:31 | Outpatient (REF) | payer OTHER, SELFPAY ==
[2023-12-31 17:03] LABS: Bacterial Vaginosis PCR NEGATIVE (Negative); Candida Group PCR NOT DETECTED (Not Detect); Candida glab krusei PCR NOT DETECTED (Not Detect); Trichomonas vaginalis PCR NOT DETECTED (Not Detect)
== END 2023-12-31 14:32 | disposition home or self-care (01) ==
LOC: HO.LNP 14:31
PROVIDERS: PCP Internal Medicine; Visit Provider Advanced Practice Midwife
DX: Z01.419 Encounter for gynecological examination (general) (routine) without abnormal findings (principal); Z20.2 Contact with and (suspected) exposure to infections with a predominantly sexual mode of transmission
CPT/HCPCS: 0352U; 87625; 88175; 99395

== ENCOUNTER 2023-12-31 15:31 | Outpatient (REF) | payer OTHER, SELFPAY ==
[2023-12-31 17:33] LABS: CT PCR NOT DETECTED (Not Detect.); NG PCR NOT DETECTED (Not Detect.)
[2024-01-01 08:12] LABS: HBc Num1 0.16 S/CO (0.00-0.79); HIV AB/AG Nonreactive (Nonreactive); HIV Num 1 0.05 S/CO (0.00-0.99); Hepatitis B Core Antibody Nonreactive (Nonreactive); ~HepC Num1 0.24 S/CO (0.00-0.79); ~Hepatitis C Antibody Nonreactive (Nonreactive)
[2024-01-01 08:15] LABS: Syphilis Screen Nonreactive (Nonreactive)
== END 2023-12-31 15:32 | disposition home or self-care (01) ==
LOC: HO.LAB 15:31
PROVIDERS: Visit Provider Advanced Practice Midwife
DX: Z20.2 Contact with and (suspected) exposure to infections with a predominantly sexual mode of transmission (principal); Z11.3 Encounter for screening for infections with a predominantly sexual mode of transmission
CPT/HCPCS: 0353U; 86704; 86780; 86803; 87389

== ENCOUNTER 2024-06-09 18:31 | Emergency (ER) | payer OTHER, SELFPAY ==
--- NOTE | ~2024-06-09 | CT_ITS ---
EXAMINATION: CT ORBIT WITH CONTRAST CLINICAL INFORMATION: Swelling. COMPARISON: None available. TECHNIQUE: Contiguous axial contrast enhanced CT scan images of the orbits obtained after the intravenous administration of 85 mL Omnipaque 350. Sagittal and coronal reformatted images also obtained. This CT examination was performed using dose optimization techniques as appropriate, variously including the following: *Automated exposure control *Adjustment of mA and/or kV according to patient size (this includes techniques or standardized protocols for targeted exams where dose is matched to indication/reason for exam; i.e. extremities or head) *Use of iterative reconstruction technique DLP: 95 mGy-cm FINDINGS: There is apparent left greater than right periorbital soft tissue swelling. The intraorbital structures are unremarkable. The globes are normal. There is no fluid collection. There is a 4 mm radiodense structure along the medial right orbit possibly calcification. There is maxillary, sphenoidal and ethmoid sinus mucosal thickening. The visualized intracranial structures are unremarkable. CT/CT orbit BI w IV con IMPRESSION: 1. There is apparent left greater than right periorbital soft tissue swelling. The intraorbital structures are unremarkable. 2. There is a 4 mm radiodense structure along the medial right orbit possibly calcification. 3. There is maxillary, sphenoidal and ethmoid sinus mucosal thickening. Electronically signed by: Fuentes Hdogson MD 06/10/2024 06:05 AM LAISHA
[2024-06-09 19:53] VITALS: BP 147/100; PULSE 113; RESP 18; TEMP 37.1; O2SAT 99; BMI 24.6
--- NOTE | 2024-06-09 19:55 | ED.GENADULT ---
HPI - General Adult General Chief complaint: General Medical Stated complaint: ?Rash to face Time Seen by Provider: 06/09/24 23:14 Source: patient, RN notes reviewed and old records reviewed Mode of arrival: ambulatory Limitations: no limitations History of Present Illness ED Provider: Amanda RUIZ narrative: 24-year-old female with past medical history significant for bipolar disorder, eczema, IgA nephropathy presents for evaluation of a facial rash. The patient reports she has a history of eczema mostly on her hands. She has been on Dupixent shots in the past and topical steroids but she has not been on them for at least 6 months She reports yesterday she had a mild rash to her face When she woke up this morning she had a crusting/scaling rash over her entire face and to her neck She describes her rash as itching and burning Denies any fevers or chills. She has some swelling around her eyes and clear drainage/discharge from the eyes bilaterally Denies any new medications, she is not currently on any medications. Related Data Home Medications ?Medication ?Instructions ?Recorded ?Confirmed alclometasone 0.05 % topical cream appl topical 04/11/23 triamcinolone acetonide 0.1 % 1 appl topical BID 04/11/23 topical ointment Previous Rx's ?Medication ?Instructions ?Recorded cetirizine 10 mg capsule (Zyrtec) 10 mg PO DAILY 14 days #14 caps 09/20/22 doxycycline hyclate 100 mg tablet 100 mg PO BID #14 tabs 06/10/24 prednisone 20 mg tablet 40 mg (2 x 20 mg) PO DAILY #10 tabs 06/10/24 Allergies Allergy/AdvReac Type Severity Reaction Status Date / Time shellfish derived Allergy Severe ANAPHYLAXIS Verified 06/09/24 19:54 [SHELLFISH DERIVED] animal dander [PET DANDER] Allergy Unknown ANAPHYLAXIS Verified 06/09/24 19:54 Penicillins [PENICILLINS] Allergy Unknown ANAPHYLAXIS Verified 06/09/24 19:54 apples Allergy Severe Anaphylaxis Uncoded 06/09/24 19:54 nuts Allergy Severe Anaphylaxis Uncoded 06/09/24 19:54 Review of Systems Constitutional: Constitutional: Denies body ache(s), Denies chills, Denies fever(s) and Denies headache(s) Eyes: Eyes: Denies blurry vision and Reports eye discharge ENT: Denies dizziness, Denies headache(s) and Denies epistaxis Cardiovascular: Cardiovascular: Denies chest pain and Denies dyspnea Respiratory: Respiratory: Denies cough and Denies dyspnea Gastrointestinal: Gastrointestinal: Denies abdominal pain, Denies nausea and Denies vomiting Musculoskeletal: Musculoskeletal: Denies back pain Integumentary/Breasts: Skin/Breast: Reports pruritus, Reports erythema and Reports rash Neurologic: Denies dizziness and Denies headache(s) Psychiatric: Psychiatric: Denies anxiety PMFSH Past Medical History Medical History IgA nephropathy ADHD Generalized anxiety disorder Depression Bipolar 2 disorder Eczema Asthma COPD (chronic obstructive pulmonary disease) IgA deficiency Family History Family History Mother Nonalcoholic fatty liver HTN (hypertension) Maternal Aunt Ovarian cancer Maternal Uncle Liver cancer Maternal Aunt Diabetes Other Mental health disorder Social History Social History Household Members: Family Housing: House Alcohol intake: current Alcohol intake frequency: a few times a month Patient Tobacco Use Status: Never used Tobacco Substance Use Type: Marijuana Advance Directives: No Advance Directives Information Provided: No Do you have a plan to hurt others: No Plan Current occupational status: employed Sexual orientation: Straight/Heterosexual Gender identity: Female Physical Exam ED Vital Signs: Vital Signs - 24 hr 06/09/24 19:53 06/09/24 22:08 06/10/24 00:11 Temperature 98.7 F 98.6 F 98.4 F Pulse Rate 113 H 85 94 Respiratory Rate 18 19 16 Blood Pressure 147/100 H 150/81 H 151/79 H Pulse Oximetry 99 99 97 Oxygen Delivery Method Room Air Room Air Room Air BMI result Body Mass Index 24.6 Const General: healthy appearing, no acute distress, alert and awake Nutritional Appearance: well nourished Orientation/consciousness: patient oriented x3 HENMT Head: Yes normocephalic and Yes atraumatic Eyes Eyelids: Yes eyelids normal Conjunctivae: abnormal conjunctivae and conjunctival abnormal bilateral conjunctival injection and discharge Sclerae: sclerae normal Corneas: corneas normal Pupils: Equal, round and reactive pupils present EOM: EOMs intact bilaterally Neck Neck: Yes full ROM Resp Effort & Inspection: normal respiratory effort, able to speak in complete sentences and not labored Cardio Rate: regular rate Rhythm: regular rhythm GI Inspection: No distended Palpation (GI): Soft to palpation, not firm, nontender, no guarding and not rigid Skin Other: Patient has an erythematous maculopapular rash covering the face but mostly in the forehead, right cheek and left periorbital region. There is honey-colored crusting discharge. There is no rash to the remainder of the body General skin exam: elasticity normal Neuro General: patient oriented x3 Cranial nerves: Yes Equal, round and reactive pupils present and Yes Bilaterally intact EOM present Cognition (Neuro): normal cognition Extrem Other: Moving all extremities well without any obvious deformities Course Course Course Narrative: This is a rapid medical exam performed by Daxa French PA-C. The patient is a 24-year-old female who presents with rapidly expanding facial rash over 1 and half days. Patient states the rash began as a ?red patch?, inferior to her left eye over the cheek. Patient states she woke with a diffuse rash consisting of dry scaly skin, pustules, overlying redness, purulent drainage from multiple sites, and now bilateral eye swelling. The rash extends over her entire face over the forehead, she does not have a rash anywhere else on her body. There was no oral involvement of the rash, no petechiae noted no sloughing of the skin along the buccal mucosa. I foresee the patient maybe requiring a CT scan to rule out periorbital cellulitis, we will be screening basic labs and a urine . Patient is hemodynamically stable and can return to the waiting room pending full medical assessment. Medications Administered Discontinued Medications Generic Name Dose Route Start Last Admin Trade Name Sheldonq PRN Reason Stop Dose Admin Iohexol 85 ml 06/10/24 00:57 06/10/24 00:57 Iohexol 350 Mg/Ml 100 Ml Infus..Btl IV 06/10/24 00:58 85 ml ONCE ONE Administration Medical Decision Making Medical Decision Making MDM Narrative: 24-year-old female presents for evaluation of a facial rash. She is not on any new medications that are prescribed or [id number] per her report. She denies any new soaps, lotions, detergents. The rash does seem consistent with topical steroid withdrawal syndrome however the patient has not been on steroids for at least 6 months. The honey-colored crusted does seem consistent with impetigo but she has not had any sick contacts. Given the per 0 will involvement, plan for CT scan of the face with contrast to rule out preseptal cellulitis Differential Diagnosis Differential Diagnoses: The differential diagnosis associated with the presentation includes Cellulitis Impetigo Dermatitis Preseptal cellulitis Eczema Lab Data MDM Lab Attestation statement: I reviewed the patient's lab results. Mild leukocytosis to 11.2 K. No anemia. Normal platelet count. No electrolyte abnormalities 06/09/24 20:05 06/09/24 20:05 Labs: Lab Results 06/09/24 Range/Units 20:05 WBC 11.2 H (4.8-10.8) X10*3/uL RBC 5.15 (4.20-5.50) X10*6/uL Hgb 13.8 (12.0-16.0) g/dl Hct 41.6 (37.0-47.0) % MCV 80.8 (80.0-98.0) fL MCH 26.8 L (27.0-33.0) pg MCHC 33.2 (31.0-35.0) g/dl RDW 13.5 (11.0-16.0) % Plt Count 374 (160-400) X10*3/uL MPV 9.5 (9.4-12.3) fL Immature Gran % (Auto) 0.3 (0.0-0.4) % Neut % (Auto) 62.8 (45-73) % Lymph % (Auto) 17.7 L (20-40) % [place] % (Auto) 8.7 (2-11) % Eos % (Auto) 9.9 H (0-4) % Baso % (Auto) 0.6 (0-2) % Lymph # (Auto) 2.0 (1.2-4.9) X10*3/uL [place] # (Auto) 1.0 (0.1-1.2) X10*3/uL Eos # (Auto) 1.1 H (0.0-0.4) X10*3/uL Baso # (Auto) 0.1 (0.0-0.2) X10*3/uL Abs Immat Gran (auto) 0.03 (0.00-0.03) X10*3/uL Absolute Neuts (auto) 7.0 (2.0-8.3) x10*3/uL Absolute Nucleated RBC 0.000 (0.0-0.012) X10*3/uL Nucleated RBC % (auto) 0.0 (0.0-0.2) /100WBC Sodium 138 (135-145) mmol/L Potassium 4.1 (3.3-5.1) mmol/L Chloride 103 (96-108) mmol/L Carbon Dioxide 24 (22-29) mmol/L Anion Gap 15 (12-20) BUN 15 (9-16) mg/dL Creatinine 0.77 (0.5-1.4) mg/dL Estim Creat Clear Calc 92.9 Estimated GFR > 60 Random Glucose 100 (60-115) mg/dL Calcium 10.2 D (8.4-10.2) mg/dL Magnesium 2.1 (1.6-2.6) mg/dL Total Bilirubin 0.9 (0.0-1.0) mg/dL AST 63 H (5-31) U/L ALT 82 H (0-31) U/L Alkaline Phosphatase 82 (39-117) U/L Total Protein 8.5 H (6.5-8.0) g/dL Albumin 4.6 (3.5-5.0) g/dL Beta HCG, Quant < 2 mIU/mL Discharge Plan Discharge Clinical Impression: Facial rash Patient Disposition: Home, Self-Care Instructions: Acute Rash (ED) Additional Instructions: Take both antibiotic pills as prescribed. You likely have an inflammatory rash side has a superimposed infection. Use the erythromycin ointment as prescribed Follow-up with your primary doctor and intensive care nurse. Return for new or worsening symptoms Prescriptions: New doxycycline hyclate 100 mg tablet 100 mg PO BID Qty: 14 0RF prednisone 20 mg tablet 40 mg PO DAILY Qty: 10 0RF No Action Zyrtec 10 mg capsule 10 mg PO DAILY 14 Days Qty: 14 0RF triamcinolone acetonide 0.1 % ointment 1 appl topical BID alclometasone 0.05 % cream topical Print Language: Moroccan
[2024-06-09 20:10] LABS: Basophils Absolute Auto 0.1 X10*3/uL (0.0-0.2); Basophils Percent Auto 0.6 % (0-2); Eosinophils Absolute Auto 1.1 X10*3/uL (0.0-0.4); Eosinophils Percent Auto 9.9 % (0-4); Hematocrit 41.6 % (37.0-47.0); Hemoglobin 13.8 g/dl (12.0-16.0); Imm Gran Abs Auto 0.03 X10*3/uL (0.00-0.03); Imm Gran Pct Auto 0.3 % (0.0-0.4); Lymphocytes Percent Auto 17.7 % (20-40); MANUAL DIFF FLAG NO; Mean Corpuscular HGB Conc 33.2 g/dl (31.0-35.0); Mean Corpuscular Hemoglobin 26.8 pg (27.0-33.0); Mean Corpuscular Volume 80.8 fL (80.0-98.0); Mean Platelet Volume 9.5 fL (9.4-12.3); Monocytes Percent Auto 8.7 % (2-11); Neutrophils Percent Auto 62.8 % (45-73); Platelet Count 374 X10*3/uL (160-400); Red Blood Count 5.15 X10*6/uL (4.20-5.50); Red Cell Distribution Width 13.5 % (11.0-16.0); White Blood Count 11.2 X10*3/uL (4.8-10.8)
[2024-06-09 20:35] LABS: Alanine Aminotransferase 82 U/L (0-31); Albumin Level 4.6 g/dL (3.5-5.0); Alkaline Phosphatase 82 U/L (39-117); Anion Gap 15 (12-20); Aspartate Amino Transferase 63 U/L (5-31); Bilirubin Total 0.9 mg/dL (0.0-1.0); Blood Urea Nitrogen 15 mg/dL (9-16); Calcium 10.2 mg/dL (8.4-10.2); Carbon Dioxide 24 mmol/L (22-29); Chloride 103 mmol/L (96-108); Creatinine Clr Calc Pharmacy 92.9; Estimated Glomerular Filt Rate > 60; Glucose Random 100 mg/dL (60-115); Magnesium 2.1 mg/dL (1.6-2.6); Potassium 4.1 mmol/L (3.3-5.1); Sodium 138 mmol/L (135-145); Total Protein 8.5 g/dL (6.5-8.0)
[2024-06-09 21:05] LABS: HCG Quantitative < 2 mIU/mL
[2024-06-09 22:08] VITALS: BP 150/81; PULSE 85; RESP 19; TEMP 37; O2SAT 99
[2024-06-10 00:11] VITALS: BP 151/79; PULSE 94; RESP 16; TEMP 36.9; O2SAT 97
[2024-06-10] MEDS: iohexoL 350 MG/ML 100 ML INFUS..BTL 85 ML IV (00:57)
[2024-06-10 02:45] VITALS: BP 148/64; PULSE 72; RESP 16; TEMP 36.7; O2SAT 96
[2024-06-10 04:00] VITALS: BP 138/83; PULSE 98; RESP 16; TEMP 36.9; O2SAT 100
[2024-06-10] MEDS: cephALEXin 500 MG CAPSULE PO (04:51)
[2024-06-10] MEDS: dexAMETHasone sod phosphate 10 MG/ML VIAL IVPUSH (04:51)
[2024-06-10] MEDS: Doxycycline Monohydrate 100 MG CAPSULE PO (04:51)
[2024-06-10 05:08] VITALS: BP 138/83; PULSE 98; RESP 16; TEMP 36.9; O2SAT 100
== END 2024-06-10 05:09 | disposition home or self-care (01) ==
PROVIDERS: Physician Assistant Medical; Emergency Provider Emergency Medicine Emergency Medical Services; PCP Internal Medicine
DX: R21 Rash and other nonspecific skin eruption (principal); R22.0 Localized swelling, mass and lump, head; Z79.899 Other long term (current) drug therapy
CPT/HCPCS: 36415; 70481; 80053; 83735; 84702; 85025; 87070; 87077; 87147; 87186; 87205; 96374; 99284; J1100; Q9967

== ENCOUNTER 2024-08-03 12:54 | Emergency (ER) | payer OTHER, SELFPAY ==
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
[2024-08-03 13:53] VITALS: BP 141/72; PULSE 91; RESP 16; TEMP 36.1; O2SAT 96; BMI 26.4
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
--- NOTE | 2024-08-03 16:03 | PC.NURSE ---
discharged by provider
--- OUTSIDE RECORDS SUMMARY | 2024-08-03 19:41 | XMS_ITS | Clinical Summary ---
Author Organization [facility] ity Address [address] [place] [address] Care Team Providers Care Sleeve Setter Name Role Phone Unavailable Primary Care Provider Unavailabl e Social History Tobacco Use Types Packs/Day Years Used Date Smoking Tobacco: Never Assessed Sex and Gender Information Value Date Recorded Sex Assigned at Not on file Gender Identity Not on file Sexual Orientation Not on file Plan of Treatment Health Maintenance Due Date Last Done Comments Gonorrhea/Chlamydia Screening 2000 HPV Vaccines (1 - 3-dose series) 01/28/2015 DTaP,Tdap,and Td Vaccines (1 - Tdap) 01/28/2019 Hepatitis B Vaccines (1 of 3 - 19+ 3-dose series) 01/28/2019 Cervical Cancer Screening: P ap Smear 01/28/2021 COVID-19 Vaccine ( - 2023-2 5 season) 2024 Influenza Vaccine (#1) 2024 HIB Vaccines Aged Out No longer eligi ble based on patient's age to complete this topic Hepatitis A Vaccines Aged Out No long er eligible based on patient's age to complete this topic IPV Vaccines Aged Out No longer eligi ble based on patient's age to complete this topic MMR Vaccines Aged Out No longer eligi ble based on patient's age to complete this topic Meningococcal ACWY Vaccine Aged Out N o longer eligible based on patient's age to complete this topic Pneumococcal Vaccine: Pediat rics (0 to 5 Years) and At-Risk Patients (6 to 64 Years) Aged Out No longer eligible b ased on patient's age to complete this topic RSV Immunization Patients Un toshia 20 months Aged Out No longer eligible b ased on patient's age to complete this topic Varicella Vaccines Aged Out No longer eligible based on patient's age to complete this topic
--- OUTSIDE RECORDS SUMMARY | 2024-08-03 19:41 | XMS_ITS | Encounter Summary ---
Author Organization [facility] Address [address] [place] [address] Phone Care Team Providers Care Brass Wind Instrument Maker Name Role Phone Cinthia Mohr NP Primary Care Provider Unavailabl e Encounter Details Date Type Department Care Team (Late st Contact Info) Description 09/09/2012 Documentation [facility] [place] Family Medicine [facility] [place] [address] Family Medicine, Physician [address] [place] [address] Social History Tobacco Use Types Packs/Day Years Used Date Smoking Tobacco: Never Assessed Comments Unknown Sex and Gender Information Value Date Recorded Sex Assigned at Not on file Legal Sex Female 5:14 PM EDT Gender Identity Female 03/05/2020 10:38 PM EDT Sexual Orientation Not on file documented as of this encounter Plan of Treatment Not on file documented as of this encounter Visit Diagnoses Not on filedocumented in this encounter Care Teams Brass Wind Instrument Maker Relationship Specialty Start Date End Date Cinthia Mohr NP PCP - General Pediatrics 02/13/21 09/25/22 documented as of this encounter
--- OUTSIDE RECORDS SUMMARY | 2024-08-03 19:41 | XMS_ITS | Encounter Summary ---
Author Organization [facility] Address [address] [place] [address] Phone Care Team Providers Care Fixture Repairer Fabricator Name Role Phone Cinthia Mohr NP Primary Care Provider Unavailabl e Encounter Details Date Type Department Care Team (Late st Contact Info) Description 11/20/2010 Documentation [facility] [place] Family Medicine [facility] [address] Family Medicine, Physician [address] [place] [address] Social History Tobacco Use Types Packs/Day Years [...] on filedocumented in this encounter Care Teams Fixture Repairer Fabricator Relationship Specialty Start Date End Date Cinthia Mohr NP PCP - General Pediatrics 02/13/21 09/25/22 documented as of this encounter
--- OUTSIDE RECORDS SUMMARY | 2024-08-03 19:41 | XMS_ITS | Encounter Summary ---
Author Organization [facility] Address [address] [place] [address] Phone Care Team Providers Care Game Operator Name Role Phone Cinthia Mohr NP Primary Care Provider Unavailabl e Encounter Details Date Type Department Care Team (Late st Contact Info) Description 05/21/[address] [facility] [place] Family Medicine [facility] [place] [address] Family Medicine, Physician [address] [place] [address] Social History Tobacco Use Types Packs/Day Years [...] on filedocumented in this encounter Care Teams Game Operator Relationship Specialty Start Date End Date Cinthia Mohr NP PCP - General Pediatrics 02/13/21 09/25/22 documented as of this encounter
--- OUTSIDE RECORDS SUMMARY | 2024-08-03 19:41 | XMS_ITS | Encounter Summary ---
Author Organization [facility] Address [address] [place] [address] Phone Care Team Providers Care Locum Tenens Name Role Phone Cinthia Mohr NP Primary Care Provider Unavailabl e Encounter Details Date Type Department Care Team (Late st Contact Info) Description 03/17/2013 Documentation [facility] [place] [place] Family Medicine [facility] [place] [address] Family Medicine, Physician [address] [place] [address] Social History Tobacco Use Types Packs/Day Years [...] on filedocumented in this encounter Care Teams Locum Tenens Relationship Specialty Start Date End Date Cinthia Mohr NP PCP - General Pediatrics 02/13/21 09/25/22 documented as of this encounter
--- OUTSIDE RECORDS SUMMARY | 2024-08-03 19:41 | XMS_ITS | Encounter Summary ---
Author Organization [facility] Address [address] [place] [address] Phone Care Team Providers Care Content Curator Name Role Phone Cinthia Mohr NP Primary Care Provider Unavailabl e Encounter Details Date Type Department Care Team (Late st Contact Info) Description 10/26/2016 Documentation [facility] [place] [facility] [place] [facility] [address] Family Medicine, Physician [address] [place] [address] Social History Tobacco Use Types Packs/Day Years [...] on filedocumented in this encounter Care Teams Content Curator Relationship Specialty Start Date End Date Cinthia Mohr NP PCP - General Pediatrics 02/13/21 09/25/22 documented as of this encounter
--- OUTSIDE RECORDS SUMMARY | 2024-08-03 19:41 | XMS_ITS | Encounter Summary ---
Author Organization [facility] Address [address] [place] [address] Phone Care Team Providers Care Automated Cutting Machine Operator Name Role Phone Cinthia Mohr NP Primary Care Provider Unavailabl e Encounter Details Date Type Department Care Team (Late st Contact Info) Description 02/21/2017 Conversion Encounter [facility] - [address] [address] Social History Tobacco Use Types Packs/Day Years [...] on filedocumented in this encounter Care Teams Automated Cutting Machine Operator Relationship Specialty Start Date End Date Cinthia Mohr NP PCP - General Pediatrics 02/13/21 09/25/22 documented as of this encounter
--- OUTSIDE RECORDS SUMMARY | 2024-08-03 19:41 | XMS_ITS | Encounter Summary ---
Author Organization [facility] Address [address] [place] [address] Phone Care Team Providers Care Insurance Defense Attorney Name Role Phone Cinthia Mohr NP Primary Care Provider Unavailabl e Encounter Details Date Type Department Care Team (Late st Contact Info) Description 07/14/2010 Documentation [facility] [place] Family Medicine [address] [place] [address] Family Medicine, Physician [address] [place] [address] Social History Tobacco Use Types Packs/Day Years [...] on filedocumented in this encounter Care Teams Insurance Defense Attorney Relationship Specialty Start Date End Date Cinthia Mohr NP PCP - General Pediatrics 02/13/21 09/25/22 documented as of this encounter
--- OUTSIDE RECORDS SUMMARY | 2024-08-03 19:41 | XMS_ITS | Encounter Summary ---
Author Organization [facility] Address [address] [place] [address] Phone Care Team Providers Care Security Incident Response Specialist Name Role Phone Cinthia Mohr NP Primary Care Provider Unavailabl e Encounter Details Date Type Department Care Team (Late st Contact Info) Description 04/12/2011 Documentation [facility] [place] [address] [place] [address] Family Medicine, Physician [address] [place] [address] Social History Tobacco Use Types Packs/Day Years [...] on filedocumented in this encounter Care Teams Security Incident Response Specialist Relationship Specialty Start Date End Date Cinthia Mohr NP PCP - General Pediatrics 02/13/21 09/25/22 documented as of this encounter
--- OUTSIDE RECORDS SUMMARY | 2024-08-03 19:41 | XMS_ITS | Encounter Summary ---
Author Organization [facility], Address [address] [place] [address] Phone Care Team Providers Care Cocoa Press Operator Name Role Phone Unavailable Primary Care Provider Unavailabl e Encounter Details Date Type Department Care Team (Late st Contact Info) Description 03/13/2023 Office Communication [facility], - [address] [place] [phone] Yousif Lai MD [address] [place] [address] [place] [address] Social History Tobacco Use Types Packs/Day Years Used Date Smoking Tobacco: Never Alcohol Use Standard Drinks/Week Comments No 0 (1 standard drink = 0.6 oz pur e alcohol) Comments Unknown Sex and Gender Information Value Date Recorded Sex Assigned at Not on file Legal Sex Female 4:36 PM EST Gender Identity Not on file Sexual Orientation Not on file documented as of this encounter Plan of Treatment Not on file documented as of this encounter Visit Diagnoses Not on filedocumented in this encounter
--- OUTSIDE RECORDS SUMMARY | 2024-08-03 19:41 | XMS_ITS | Encounter Summary ---
Author Organization [facility] Address [address] [place] [address] Phone Care Team Providers Care Skidway Man Name Role Phone Cinthia Mohr NP Primary Care Provider Unavailabl e Encounter Details Date Type Department Care Team (Late st Contact Info) Description 03/03/2012 Documentation [facility] [place] Family Medicine [facility] [place] [address] Family Medicine, Physician [address] [place] [address] Social History Tobacco Use Types Packs/Day Years [...] on filedocumented in this encounter Care Teams Skidway Man Relationship Specialty Start Date End Date Cinthia Mohr NP PCP - General Pediatrics 02/13/21 09/25/22 documented as of this encounter
--- OUTSIDE RECORDS SUMMARY | 2024-08-03 19:41 | XMS_ITS | Clinical Summary ---
Author Organization [facility] Address [address] [place] [address] Care Team Providers Care Salvager Name Role Phone Unavailable Primary Care Provider Unavailabl e Social History Tobacco Use Types Packs/Day Years Used Date Smoking Tobacco: Never Assessed Comments Unknown Sex and Gender Information Value Date Recorded Sex Assigned at Not on file Legal Sex Female 9:21 PM EDT Gender Identity Not on file Sexual Orientation Not on file Plan of Treatment Health Maintenance Due Date Last Done Comments Depression: Screening Annual ly using PHQ-2/9 in Adults 18 yrs or above (or HM Modifier)([facility]) 01/28/2018 Hepatitis C Virus Infection in Adolescents and Adults: Screening (or Modifier) ([facility]) 01/28/2018 [facility] Screening Reminder: Krista duque for all adults ([facility]) 01/28/2018 Tobacco Smoking Cessation: i n Adults excluding Women: Behavioral and Pharmacotherapy Interventions ([facility]) 01/28/2018 DTaP/Tdap/Td Vaccines ([facility]) (1 - Tdap) 01/28/2019 Lipid Screening: Once for Wo men aged 20 to 45 yrs ([facility]) 2020 Cervical Cancer Screenin 1-65 yrs of age (or Modifier) 01/28/2021 Cervical Cancer Screening: P ap every 3 yrs pts age 21-65 01/28/2021 Cervical Cancer: Pap Screeni ng with Modifier timing ([facility]) 01/28/2021 Cervical Cancer: hrHPV alone or with cotesting Pap for Pts 30-65yrs screening every 5yrs ([facility]) 01/28/2021 Flu Vaccination: Yearly for ages 18mos through 64 years (or Modifier)([facility]) 02/06/2024 COVID-19 Vaccine Screening: Initial Series and Booster Status ([facility]) (2023- season) 2024 Zoster/Shingles Vaccine Seri es Screening: Adults aged 18+ yrs (or HM Modifiers)([facility]) (1 of 2) 01/28/2050 Pneumococcal Vaccination Scr eening: Pts 0-19 & 19-64 yrs of age ([facility]) Aged Out No longer eligible based on patient's age to complete this topic Medical Devices Not on file Insurance
--- OUTSIDE RECORDS SUMMARY | 2024-08-03 19:41 | XMS_ITS | Encounter Summary ---
Author Organization [facility] Address [address] [place] [address] Phone Care Team Providers Care Clinic Administrator Name Role Phone Cinthia Mohr NP Primary Care Provider Unavailabl e Encounter Details Date Type Department Care Team (Late st Contact Info) Description 12/10/2014 Documentation [facility] [place] [facility] [place] [address] Family Medicine, Physician [address] [place] [address] Social History Tobacco Use Types Packs/Day Years [...] on filedocumented in this encounter Care Teams Clinic Administrator Relationship Specialty Start Date End Date Cinthia Mohr NP PCP - General Pediatrics 02/13/21 09/25/22 documented as of this encounter
--- OUTSIDE RECORDS SUMMARY | 2024-08-03 19:41 | XMS_ITS | Encounter Summary ---
Author Organization [facility] Address [address] [place] [address] Phone Care Team Providers Care Knife Glazer Name Role Phone Cinthia Mohr NP Primary Care Provider Unavailabl e Encounter Details Date Type Department Care Team (Late st Contact Info) Description 02/28/2012 [place] [facility] [place] [facility] [address] Family Medicine, Physician [address] [place] [address] Social History Tobacco Use Types Packs/Day Years [...] on filedocumented in this encounter Care Teams Knife Glazer Relationship Specialty Start Date End Date Cinthia Mohr NP PCP - General Pediatrics 02/13/21 09/25/22 documented as of this encounter
--- OUTSIDE RECORDS SUMMARY | 2024-08-03 19:41 | XMS_ITS | Clinical Summary ---
Author Organization [facility] Address [address] [place] [address] Phone Care Team Providers Care Lecturer In Computer Science Name Role Phone Unavailable Primary Care Provider Unavailabl e Allergies Active Allergy Reactions Criticality Noted Date Comments Apple Juice Other (see comments) 10/02/2019 Dust Mite Extract Other (see comments) 10/02/2019 Environmental 03/24/2018 Dust Fish Allergy Other (see comments) 10/02/2019 Food 03/24/2018 ALL NUTS, Apples, Shellfish, Squash, nutmeg ALL NUTS, Apples, Shellfish, Squash Nutmeg Oil (Myristica Oil) Other (see comments) 10/02/2019 Penicillin G 03/24/2018 Penicillin V Other (see comments) 10/02/2019 [address] director dr dorantes note 10/2019 Shellfish-Derived Products 11/06/2019 Medications Spacer/Aero-Hold ing Chambers ([employer]ICHAMBER ADVANTAGE) miscIndications: Mild intermittent asthma without complication Use with inhaler as instructed 1 each 06/09/20 18 Active Additional Information Patient not taking.Reported on 06/16/2020 Emollient (CeraVe) creamIndications :Dermatitis Pt to compound with triamcinolone and apply topically to affected skin 1-2x a day as directed. 453 g 1 12/20/19 20 Active montelukast 10 MG tabletIndication s:Mild persistent asthma without complication Take 1 tablet (10 mg total) by mouth every evening. 30 tablet 3 01/18/20 21 Active EPINEPHrine (EpiPen 2-Kayden) 0.3 MG/0.3ML injection syringeIndicatio ns:Allergy to shellfish Inject 0.3 mL (0.3 mg total) into the muscle as needed for anaphylaxis. 1 syringe Once prn anaphylaxis 2 Syringe 1 01/18/20 21 Active albuterol HFA 108 (90 Base) MCG/ACT inhalerIndicatio ns:Mild persistent asthma without complication Inhale 2 puffs every 4 (four) hours as needed for wheezing or shortness of breath. 1 Units 01/18/20 21 Active Active Problems Problem Noted Date Diagnosed Date Anxiety disorder 01/04/2020 Cutaneous hypersensitivity 10/08/2019 Stage 1 chronic kidney disease 10/02/2019 Overview (12/22/2019): Followed by nephrology - no treatment and stable without issues at this time, last seen 10/2019 Assessment & Plan (01/17/2021 3:58 PM EDT): Needs to clarify w/ Dr Dorantes; Pt needs to call for update on next appt; turns 21 yr [place] Attention deficit disorder (ADD) without hyperac tivity 02/27/2017 IgA nephropathy 02/27/2017 History of major depression 06/15/2014 Overview (12/22/2019): In the past seen by [facility] with ongoing med management, was taking prozac. Pt self weaned a long time ago and has not been in therapy or on meds for a while. Says the prozac made symptoms worse and she has frequent panic attacks. Treats with marijuana regularly which helps. Not currently in therapy. Says she was dx with bipolar disorder but doesn't think she was ever on meds for this. Some superfical cutting hx (on L wrist) but no active SI or self harm concerns. Would be willing to see a therapist. Assessment & Plan (01/22/2021 8:44 AM EDT): in discussion with her about her hx of depression-she reports doing well and is not any psychotropic medication;she currently has no counseling; she has taken steps for self car of going to the gym and find this a stress reliever;she declined the need to reconnect w/ [facility], she has had stable job for 3 yr; Assessment & Plan (12/22/2019 2:52 AM EDT): Refer to our [facility] and work on getting her back into longer term therapy and medication management if she is agreeable. NO concerns for self harm at this time, able to contract for safety. Follow up in 1 month for recheck to see how she is doing, sooner PRN. Asthma 11/08/2009 Eosinophilic esophagitis 11/08/2009 Microscopic hematuria 11/08/2009 Overview (05/12/2018): Still followe by Dr Dorantes. Taking Diovan 40mg daily and Fe for related anemia. No further lasix. Renal US planned for Jun 2014 Resolved Problems Problem Noted Date Diagnosed Date Resolved Date Childhood overweight, BMI 85-94.9 percentile 0 01/22/2021 Immunizations Name Administration Dates Next Due DTaP 5 02/22/2004, 2,2000,06/03,2000 HPV, Quadrivalent 12/13/2011,08/06/2011,06/05/20 11 Hep A, ped/adol 07/19/2015,06/15/2014 Hep B, ped/adol 01/28/2001,2000,2000 Hib (PRP-T) 05/08/2001, 1,2000,04/01 IPV 02/22/2004, 1,2000,04/01 Influenza Split 05/03/2011 Influenza, injectable, quadrivalent 05/10/2015,1 07/25/2013 Influenza, injectable, quadr ivalent, preservative free 05/12/2018,03/06/2016,06/11/2013 Influenza, injectable, trivalent 009,04/29/2008,03/24/2007,04/18,04/09/2005,04/20/2003 MMR 02/22/2004,01/28/2001 Meningococcal Conj (Menactra) MCV4P 02/27/2017,1 08/05/2010 Pneumococcal Conjugate 01/28/2001,2000,2000,04/01 Tdap 06/05/2011 Varicella 04/29/2008,01/28/2001 Family History Relation Name Status Comments Brother Gallo Alive Brother: Alive and well Father Juan Pablo Alive Father: Heart d isease, arthritis,, Elevated cholesterol, Hypertension Mother Thaddeus Alive Mother: Depress ion, Asthma, Allergic rhinitis Other Family history of Hyperlipidemia, Family history of *Sudden /NM under 55, Family history of Migraines, Family history of *CVA/Stroke, Family history of *Dental caries, Family history of *Heart Disease, No family history of *Thrombophilia, Family history of Diabetes mellitus Sister 1 Leandra Alive Sister: Depress ion, Allergies Sister 2 Darcy Alive Sister: Depress ion, Allergies Social History Tobacco Use Types Packs/Day Years Used Date Smoking Tobacco: Never Comments:Never smoker Hunger/Food Answer Date Recorded In the last 12 months, did y ou or your family ever eat less than you felt you should because there wasn't enough money for food? No 01/16/2021 Stable Housing Answer Date Recorded Are you worried that in the next 2 months you may not have stable housing? No 01/16/2021 Transportation Concerns Answer Date Rec orded In the last 12 months, have you or your family ever had to go without healthcare because you didn't have a way to get there? No 01/16/2021 Hazards in Home Answer Date Recorded Think about the place you li ve. Do you have problems with any of the following? Pests (mice or roaches), mold, no/not working smoke detectors, water leaks, no window guards. No 2020 Financing Utilities Answer Date Recorde d In the last 12 months, has t he electric, gas, oil, or water company threatened to shut off your services in your home? No 01/16/2021 Safety at Home Answer Date Recorded Are you or your family worried about feeling saf e in your home? No 01/16/2021 Outside Support Answer Date Recorded Do you feel that you need mo re support from other people or programs to help you care for yourself or your family? No 01/16/2021 Understanding Health Concerns Answer Da te Recorded Do you need help understandi ng your or your child's healthcare needs (diagnosis, medications, plan, etc.)? No 01/16/2021 Financing Health Concerns Answer Date R ecorded In the last 12 months, was t here a time when your child needed to see a doctor or get medications or supplies but could not because of cost? No 01/16/2021 Missing School or Work Answer Date Leonard rded Did you or your child miss s chool or work because of a health problem that could have been avoided? No 01/16/2021 Comments No Sex and Gender Information Value Date Recorded Sex Assigned at Not on file Legal Sex Female 5:14 PM EDT Gender Identity Female 03/05/2020 10:38 PM EDT Sexual Orientation Not on file Last Filed Vital Signs Vital Sign Reading Time Taken Comments Blood Pressure 120/60 01/17/2021 3:11 PM EDT Pulse 52 01/17/2021 3:11 PM EDT Temperature 36.4 ??C (97.5 ??F) 01/17/2021 3:11 PM ED T Respiratory Rate 20 06/09/2018 11:51 AM EST Oxygen Saturation 98% 08/08/2013 12:00 AM EST Inhaled Oxygen Concentration - - Weight 57.9 kg (127 lb 9.6 oz) 01/17/2021 3:11 P M EDT Height 156.5 cm (5' 1.61 ) 01/17/2021 3:11 PM ED T Body Mass Index 23.63 01/17/2021 3:11 PM EDT Plan of Treatment Health Maintenance Due Date Last Done Comments Consider Men B Vaccine (1 of 2 - Bexsero 2-dose series) 2016 DTaP,Tdap,and Td Vaccines (7 - Td or Tdap) 06/05/2021 06/05/2011, 02/22/2004, 08/08/2001, Additional history exists Influenza Vaccines (#1) 2024 05/12/20 18, 03/06/2016, 05/10/2015, Additional history exists COVID-19 Vaccine ( season) 2024 12/11/2020, 11/20/2020 Hepatitis B Vaccines Completed 01/28/2001, 2000, 2000 Pneumococcal Vaccine Completed 01/28/2001, 2000, 2000, Additional history exists HIB Vaccines Completed 05/08/2001, 10/07, 2000, Additional history exists IPV Vaccines Completed 02/22/2004, 10/07, 2000, Additional history exists MMR Vaccines Completed 02/22/2004, 01/28/2001 Varicella Vaccines Completed 04/29/2008, 01/28/2001 HPV Vaccines Completed 12/13/2011, 07/10, 06/05/2011 Hepatitis A Vaccines Completed 07/19/2015, 06/15/20 14 Meningococcal Vaccine Completed 02/27/2017, 011 Men B Vaccine Aged Out No longer elig ible based on patient's age to complete this topic Procedures * Due to [employer] law, this organization might not be sharing sensitive test results. Procedure Name Priority Date/Time Associated Diagnosis Comments CHLAMYDIA AND GONORRHEA, AMPLIFIED Routine 01/17/2021 3:15 PM EDT Screening examination for bacterial and spirochetal disease from Last 3 Months or Most Recently Relevant to Health Maintenance Results * Due to [employer] law, this organization might not be sharing sensitive test results. * Chlamydia and Gonorrhoea, Amplified (01/17/2021 3:15 PM EDT) Chlamydia Trachomatis, DNA Probe NEGATIVE (NEG) [facility] Comment: No Chlamydia Trachomatis RNA detected in this patient's sample ? (REFERENCE RANGE/NORMAL VALUE: NOT DETECTED) ? Note: This test uses radiation therapist- mediated amplification method to detect rRNA from C. Trachomatis URINE GC AMP PROBE NEGATIVE (NEG) [facility] Comment: No Neisseria Gonorrhoeae RNA detected in this patient's sample ? (REFERENCE RANGE/NORMAL VALUE: NOT DETECTED) ? NOTE: This test uses radiation therapist-mediated amplification method to detect rRNA from N.Gonorrhoeae. A negative result does not preclude infection. In the case of a negative urine result, testing of an endocervical(female) or urethral (male) specimen is recommended if there is high clinical suspicion of infection. Due to very high sensitivity of Nucleic Acid Amplification Test, false positive results may occur. Therefore, specimen handling is extremely important. In patients in whom the disease is unlikely, additional sample for testing should be considered after an initial positive result. The performance characteristics of this test have not been evaluated in children. The Aptima Combo2 assay is not intended for the evaluation of suspected sexual abuse or for other medico-legal indications. The ordering provider should assess if the patient had consensual sex without risk of sexual abuse. Consult the [facility] if needed. Contact phone number . Therapeutic failure or success cannot be determined with the Aptima Combo2 assay since nucleic acid may persist following appropriate antimicrobial therapy. The Centers for Disease Control and Prevention (CDC) recommends confirmatory retesting using culture or a different nucleic acid amplification test when positive results occur, if indicated. Testing performed or reported by [facility], a Service of [facility], [address] [place] [address] Rocky Ratliff MD, [facility] Urine 01/17/2021 3:15 PM EDT 01/17/2021 10:56 PM EDT us Cinthia Mohr NP LAB MICROBIOLOGY - GENERAL ORDER ANABEL Final Result [facility] from Last 3 Months or Most Recently Relevant to Health Maintenance Insurance [facility] NON PCC BCBS BLUE CARD OUT OF STATE [facility] NON P[facility]
--- OUTSIDE RECORDS SUMMARY | 2024-08-03 19:41 | XMS_ITS | Encounter Summary ---
Author Organization [facility] Address [address] [place] [address] Phone Care Team Providers Care Group Activities Aide Name Role Phone Cinthia Mohr NP Primary Care Provider Unavailabl e Encounter Details Date Type Department Care Team (Late st Contact Info) Description 04/09/2016 Documentation [facility] [place] [address] Family Medicine, Physician [address] [place] [address] Social History Tobacco Use Types Packs/Day Years [...] on filedocumented in this encounter Care Teams Group Activities Aide Relationship Specialty Start Date End Date Cinthia Mohr NP PCP - General Pediatrics 02/13/21 09/25/22 documented as of this encounter
--- OUTSIDE RECORDS SUMMARY | 2024-08-03 19:41 | XMS_ITS | Encounter Summary ---
Author Organization [facility] Address [address] [place] [address] Phone Care Team Providers Care Foot Roentgenologist Name Role Phone Unavailable Primary Care Provider Unavailabl e Encounter Details Date Type Department Care Team (Late st Contact Info) Description 03/07/2022 Office Communication [facility] [address] [place] [address] Yousif Lai MD [address] [place] [address] Social History Tobacco Use Types [...]
--- OUTSIDE RECORDS SUMMARY | 2024-08-03 19:41 | XMS_ITS | Encounter Summary ---
Author Organization [facility] Address [address] [place] [address] Phone Care Team Providers Care Sports Medicine Physician Name Role Phone Cinthia Mohr NP Primary Care Provider Unavailabl e Encounter Details Date Type Department Care Team (Late st Contact Info) Description 11/11/2013 Documentation [facility] [place] [facility] [place] [address] Family Medicine, Physician [address] [place] [address] Social History Tobacco Use Types Packs/Day Years [...] on filedocumented in this encounter Care Teams Sports Medicine Physician Relationship Specialty Start Date End Date Cinthia Mohr NP PCP - General Pediatrics 02/13/21 09/25/22 documented as of this encounter
--- OUTSIDE RECORDS SUMMARY | 2024-08-03 19:41 | XMS_ITS | Encounter Summary ---
Author Organization [facility] Address [address] [place] [address] Phone Care Team Providers Care Cardio Tech Name Role Phone Cinthia Mohr NP Primary Care Provider Unavailabl e Encounter Details Date Type Department Care Team (Late st Contact Info) Description 11/11/2013 Documentation [facility] [place] [address] Family Medicine, Physician [address] [place] [address] Social History Tobacco Use Types Packs/Day Years [...] on filedocumented in this encounter Care Teams Cardio Tech Relationship Specialty Start Date End Date Cinthia Mohr NP PCP - General Pediatrics 02/13/21 09/25/22 documented as of this encounter
--- OUTSIDE RECORDS SUMMARY | 2024-08-03 19:41 | XMS_ITS | Clinical Summary ---
Author Organization [facility], Address [address] [place] [address] [place] [address] Phone Care Team Providers Care Manager Mortgage Name Role Phone Unavailable Primary Care Provider Unavailabl e Allergies Active Allergy Reactions Criticality Noted Date Comments Apple Juice Other (see comments) 10/02/2019 Dust Mite Extract Other (see comments) 10/02/19 Fish Allergy Other (see comments) 10/02/2019 Food 03/24/2018 ALL NUTS, Apples, Shellfish, Squash Nutmeg Oil (Myristica Oil) Other (see comments) 10/02/2019 Other 02/28/2022 Penicillin G 03/24/2018 Penicillin V Other (see comments) 10/02/2019 Shellfish-Derived Products 11/06/2019 Medications albuterol HFA (PROVENTIL HFA;VENTOLIN HFA) 108 (90 Base) MCG/ACT inhaler Inhale 2 puffs 06/09/2018 Active sertraline (ZOLOFT) 50 MG tablet Take 1 tablet by mouth 1 (one) time each day 08/30/2016 Active dexmethylphenid ate XR (Focalin XR) 20 MG 24 hr capsule Take 1 capsule by mouth 1 (one) time each day Active loratadine (Claritin) 10 MG tablet Take 1 tablet (10 mg total) by mouth 1 (one) time each day 30 tablet 02/27/2021 Active EPINEPHrine (EPIPEN) 0.3 MG/0.3ML injection syringe Inject 0.3 mg into the shoulder, thigh, or buttocks 01/17/2021 Active montelukast (SINGULAIR) 10 MG tablet Take 10 mg by mouth 1 (one) time each day in the evening 01/17/2021 Active Active Problems Problem Noted Date Diagnosed Date Cutaneous hypersensitivity 10/08/2019 Chronic kidney disease stage 1 10/02/2019 IgA nephropathy 02/27/2017 Microscopic hematuria 11/08/2009 Overview (10/02/2019): Still followe by Dr Lai. Taking Diovan 40mg daily and Fe for related anemia. No further lasix. Renal US planned for Jun 2014 Resolved Problems Problem Noted Date Diagnosed Date Resolved Date Attention-deficit hyperactiv ity disorder predominantly inattentive type 02/27/2017 0 Depressive disorder 06/15/2014 10/07/19 20 Overview (10/02/2019): Seen by Jose Amado. In counseling. TAking prozac. Childhood obesity 05/15/2010 10/07/2019 Asthma 11/08/2009 10/07/2019 Eosinophilic esophagitis 11/08/200907/2019 Immunizations Name Administration Dates Next Due DTaP 5 02/22/2004, 2,2000,06/03,2000 HPV, Quadrivalent 12/13/2011,08/06/2011,06/05/20 11 Hep A, 2 Dose 07/19/2015,06/15/2014 Hep B, Adolescent or Pediatric 01/28/2001,1999,2000 Hib (PRP-T) 05/08/2001, 1,2000,04/01 IPV 02/22/2004, 1,2000,04/01 Influenza Split 05/03/2011 Influenza TIV (IM) 04/19/2009, 8,03/24/2007,04/18,04/09/2005,04/20/2003 Influenza, Quadrivalent, Pre servative Free 05/12/2018,03/06/2016,06/11/2013 Influenza, Quadrivalent, Wit h Preservative 05/10/2015,05/25/2014 MMR 02/22/2004,01/28/2001 Meningococcal MCV4P 02/27/2017,06/05/2011 Pneumococcal Conjugate 01/28/2001,2000,2000,04/01 Tdap 06/05/2011 Varicella 04/29/2008,01/28/2001 Family History Medical History Relation Comments Cancer Father Heart disease Father grandmother, unc le Hypertension Father Stroke Father Cancer Mother Diabetes Mother aunt , grandfath er, brother, sister Heart disease Mother granmother, gran dfather, aunt Hypertension Mother aunt, uncle, gra ndmother Stroke Mother Relation Status Comments Father Alive Mother Alive Social History Tobacco Use Types Packs/Day Years Used Date Smoking Tobacco: Never Alcohol Use Standard Drinks/Week Comments No 0 (1 standard drink = 0.6 oz pur e alcohol) Comments Unknown Sex and Gender Information Value Date Recorded Sex Assigned at Not on file Legal Sex Female 4:36 PM EST Gender Identity Not on file Sexual Orientation Not on file Last Filed Vital Signs Vital Sign Reading Time Taken Comments Blood Pressure 118/65 09/25/2018 12:00 PM EDT Pulse 74 09/25/2018 12:00 PM EDT Temperature - - Respiratory Rate 16 09/25/2018 12:00 PM EDT Oxygen Saturation - - Inhaled Oxygen Concentration - - Weight 70.8 kg (156 lb) 09/25/2018 12:00 PM EDT Height 154.9 cm (5' 1 ) 09/25/2018 12:00 PM EDT Body Mass Index 29.48 09/25/2018 12:00 PM EDT Plan of Treatment Health Maintenance Due Date Last Done Comments Pneumococcal Vaccine: Pediat rics (0 to 5 Years) and At-Risk Patients (6 to 64 Years) (1 of 2 - PCV) 01/28/2006 01/28/2001, 2000, 2000, Additional history exists Influenza Vaccine (#1) 2024 8, 03/06/2016, 05/10/2015, Additional history exists Hepatitis B Vaccine Completed 01/28/2001, 2000, 2000
--- OUTSIDE RECORDS SUMMARY | 2024-08-03 19:41 | XMS_ITS | Encounter Summary ---
Author Organization [facility] Address [address] [place] [address] Phone Care Team Providers Care Computing Machine Operator Name Role Phone Cinthia Mohr NP Primary Care Provider Unavailabl e Encounter Details Date Type Department Care Team (Late st Contact Info) Description 03/19/2013 Documentation [facility] [place] Family Medicine [place] [address] Family Medicine, Physician [address] [place] [address] Social History Tobacco Use Types Packs/Day Years [...] on filedocumented in this encounter Care Teams Computing Machine Operator Relationship Specialty Start Date End Date Cinthia Mohr NP PCP - General Pediatrics 02/13/21 09/25/22 documented as of this encounter
--- OUTSIDE RECORDS SUMMARY | 2024-08-03 19:41 | XMS_ITS | Encounter Summary ---
Author Organization [facility] Address [address] [place] [address] Phone Care Team Providers Care Ice Guard Tester Name Role Phone Cinthia Mohr NP Primary Care Provider Unavailabl e Encounter Details Date Type Department Care Team (Late st Contact Info) Description 04/02/[address] [facility] [place] Family Medicine [facility] [place] [address] Family Medicine, Physician [address] [place] [address] Social History Tobacco Use Types Packs/Day Years [...] on filedocumented in this encounter Care Teams Ice Guard Tester Relationship Specialty Start Date End Date Cinthia Mohr NP PCP - General Pediatrics 02/13/21 09/25/22 documented as of this encounter
--- OUTSIDE RECORDS SUMMARY | 2024-08-03 19:41 | XMS_ITS | Encounter Summary ---
Author Organization [facility] Address [address] [place] [address] Phone Care Team Providers Care Retail Field Supervisor Name Role Phone Cinthia Mohr NP Primary Care Provider Unavailabl e Encounter Details Date Type Department Care Team (Late st Contact Info) Description 09/07/2015 Documentation [facility] [place] Family Medicine [facility] [place] [address] Family Medicine, Physician [address] [place] [address] Social History Tobacco Use Types Packs/Day Years [...] on filedocumented in this encounter Care Teams Retail Field Supervisor Relationship Specialty Start Date End Date Cinthia Mohr NP PCP - General Pediatrics 02/13/21 09/25/22 documented as of this encounter
== END 2024-08-03 15:59 | disposition home or self-care (01) ==
LOC: HO.ED 15:59
PROVIDERS: Emergency Provider Emergency Medicine; PCP Internal Medicine
DX: R51.9 Headache, unspecified (principal); S16.1XXA Strain of muscle, fascia and tendon at neck level, initial encounter; V43.62XA Car passenger injured in collision with other type car in traffic accident, initial encounter; Y93.89 Activity, other specified; Y92.410 Unspecified street and highway as the place of occurrence of the external cause; Y99.9 Unspecified external cause status
CPT/HCPCS: 70450; 72125; 99281; 99284

== ENCOUNTER → 2024-08-03 13:55 | Outpatient (BNV) | payer OTHER, SELFPAY | PROVIDERS: Emergency Provider Emergency Medicine; PCP Internal Medicine; Visit Provider Radiology Diagnostic Radiology | DX: M54.2 Cervicalgia (principal); R51.9 Headache, unspecified; V89.2XXA Person injured in unspecified motor-vehicle accident, traffic, initial encounter | CPT/HCPCS: 70450; 72125 ==

== ENCOUNTER 2025-04-22 11:00 | Outpatient (AMB) | payer OTHER, SELFPAY ==
--- NOTE | 2025-04-22 11:06 | MHC.PC.OV ---
Vital Signs 04/22/25 11:07 Height 5 ft 1 in Weight 144 lb BMI 27.2 BP 98/60 Blood Pressure Location Lt brachial Position Sitting Respiration 18 Pulse 70 Pulse Source Pulse Oximeter Temp 97.1 F Temp Source Temporal Artery Scan Pulse Oximetry (%) 96 Oxygen Delivery Method Room Air Intake Visit Reasons: annual exam Flower Grower Required: No Accompanied by: Self / Same As Patient Allergies shellfish derived (SHELLFISH DERIVED) Allergy (Severe, Verified 04/22/25 11:17) ANAPHYLAXIS animal dander (PET DANDER) Allergy (Unknown, Verified 04/22/25 11:17) ANAPHYLAXIS Penicillins (PENICILLINS) Allergy (Unknown, Verified 04/22/25 11:17) ANAPHYLAXIS apples Allergy (Severe, Uncoded 04/22/25 11:17) Anaphylaxis nuts Allergy (Severe, Uncoded 04/22/25 11:17) Anaphylaxis Medication List - Last Reconciled 04/22/25 by ZIGGY Ruiz alclometasone 0.05% appl topical cephalexin 500 mg PO QID 10 days cetirizine (Zyrtec) 10 mg PO DAILY 14 days doxycycline hyclate 100 mg PO BID prednisone 40 mg (2 x 20 mg) PO DAILY triamcinolone acetonide 0.1% 1 appl topical BID Tobacco use date assessed: 04/22/25 Dental Screening Dental Screen Date: 04/22/25 Did you have a dental visit in the last 12 months?: No Did you have a dental problem in the last 6 months where you did not have access to dental care?: No Was dental information given to patient?: No HPI annual exam HPI Details Dentist: no Eye: no Snellen: Right: Left: Corrected vision: no STI screening: Colonoscopy: Pap Smer: last year, needs to schedule for one PHQ-9: Flu:no COVID: x2 Tdap: up to date Diet:regular Exercise: works out 3 times a week at least The patient is a 25-year-old female presenting for a routine physical examination. The patient has a history of elevated liver enzymes noted last year, which were previously normal. The patient denies any current abdominal pain or discomfort, particularly in the right upper quadrant. The patient reports a history of asthma, with exacerbations occurring primarily during the winter and summer seasons. She does not currently use an inhaler regularly, although it is recommended for management. The patient experiences shortness of breath and occasional wheezing during exacerbations. The patient expresses concerns regarding her mental health, particularly following a recent financial loss. She reports feeling unregulated and struggles with emotional well-being, although she has not sought professional therapy. [facility] Medical History (Updated 04/25/25 @ 23:10 by ZIGGY Ruiz) IgA nephropathy ADHD Generalized anxiety disorder Depression Bipolar 2 disorder Eczema Asthma COPD (chronic obstructive pulmonary disease) IgA deficiency Family History Mother Nonalcoholic fatty liver HTN (hypertension) Maternal Aunt Ovarian cancer Maternal Uncle Liver cancer Maternal Aunt Diabetes Other Mental health disorder Social History Household Members: Family Housing: House Alcohol intake: current Alcohol intake frequency: does not drink Patient Tobacco Use Status: Never used Tobacco Substance Use Type: Marijuana Current occupational status: employed Sexual orientation: Straight/Heterosexual Gender identity: Female Female Reproductive History Menstrual Age of Menarche: 11 Questionnaire PHQ-9 Over the last 2 weeks, how often have you been bothered by any of the following problems? 1. Little interest or pleasure in doing things: several days 2. Feeling down, depressed, or hopeless: not at all 3. Trouble falling or staying asleep, or sleeping too much: several days 4. Feeling tired or having little energy: several days 5. Poor appetite or overeating: several days 6. Feeling bad about yourself - or that you are a failure or have let yourself or your family down: several days 7. Trouble concentrating on things, such as reading the newspaper or watching television: not at all 8. Moving or speaking so slowly that other people could have noticed. Or the opposite - being so fidgety or restless that you have been moving around a lot more than usual: not at all 9. Thoughts that you would be better off or of hurting yourself in some way: not at all Total score: 5 Depression Screening Interpretation: Positive Depression Screening Done: Yes 07672 - PHQ-9 Billing: Yes Source: Developed by Drs. Eugenio Darling, Mandy Marmolejo, Vince Coats and colleagues, with an educational maritza from [employer]. Thrive Questionnaire Date Thrive assessed: 09/27/22 I am a: Patient What is your living situation today?: I choose not to answer this question Within the past 12 months, did the food you bought not last and you didn't have the money to get more?: I choose not to answer this question Within the past 12 months, did you worry whether your food would run out before you got money to buy more?: I choose not to answer this question Do you have trouble paying for medicines?: I choose not to answer this question Do you have trouble getting transportation to medical appointments?: I choose not to answer this question Do you have trouble paying your heating and electricity bill?: I choose not to answer this question Do you have trouble taking care of your child, family member or friend?: I choose not to answer this question Do you have trouble with day-to-day activities such as bathing, preparing meals, shopping, managing finances, etc.?: I choose not to answer this question Are you currently unemployed and looking for a job?: I choose not to answer this question Are you interested in more education?: I choose not to answer this question Please select the resources that you would like help with: None Currently or been in a relationship where the following occur: I choose not to answer THRIVE Score: 0 AUDIT C Alcohol Use Questionnaire (AUDIT-C) 1. How often do you have a drink containing alcohol?: Never Total Score: 0 RAYMOND-7 AMB Questionnaire RAYMOND-7 Date RAYMOND - 7 assessed: 09/27/22 Feeling nervous, anxious, or on edge: 0 = Not at all Not being able to stop or control worryin = Several days Worrying too much about different things: 1 = Several days Trouble relaxin = Several days Being so restless that it is hard to sit still: 0 = Not at all Becoming easily annoyed or irritable: 0 = Not at all Feeling afraid as if something awful might happen: 0 = Not at all Total RAYMOND-7 score (0-4 normal; 5-9 mild; 10-14 moderate; 15-21 severe): 3 Source: Developed by Drs. Eugenio Darling, Mandy Marmolejo, Vince Coats and colleagues, with an educational maritza from [employer]. RAYMOND-7 Assessment Billing RAYMOND-7 Assessment Tool: RAYMOND-7 Assessment 36441 Review of Systems Const Denies headache(s) Eyes Denies loss of vision ENT Denies vertigo, Denies dizziness, Denies headache(s) and Denies sore throat Card Denies chest pain, Denies leg edema, Denies lightheadedness and Reports dyspnea (on and off) Resp Denies cough, Denies hemoptysis, Reports dyspnea (on and off) and Reports wheezing (on and off) GI Denies abdominal pain, Denies melena, Denies constipation, Denies diarrhea and Denies vomiting Denies urinary frequency, Denies dysuria and Denies urinary urgency Musc Denies arthralgias, Denies joint swelling, Denies numbness and Denies tingling Neuro Denies Abnormal speech present, Denies behavioral changes, Denies vertigo, Denies dizziness, Denies headache(s), Denies loss of vision, Denies memory loss, Denies numbness and Denies tingling Psych Reports anxiety, Denies behavioral changes, Reports depression, Denies memory loss and Denies panic attacks Christo/Lymph Denies easy bleeding and Denies easy bruising Aller/Immun Reports wheezing (on and off) Physical exam (Primary Care) Vital Signs: Last Vital Signs Temp 97.1 F 04/22/25 11:07 Pulse 70 04/22/25 11:07 Resp 18 04/22/25 11:07 BP 98/60 04/22/25 11:07 Pulse Ox 96 04/22/25 11:07 Oxygen Delivery Method Room Air 04/22/25 11:07 BMI result Body Mass Index 27.2 Tobacco/Smoking Status: Tobacco use Status Tobacco use date assessed 04/22/25 04/22/25 11:12 Patient Tobacco Use Status Never used Tobacco 04/22/25 11:12 PHQ-9: PHQ-9 Score PHQ-9: Total score 5 04/25/25 22:50 Depression Screening Interpretation: Positive Thrive Assessment: Date of Thrive Assessment Date Thrive assessed 09/27/22 04/22/25 11:12 Currently or been in a relationship where the following occur: I choose not to answer Const General: healthy appearing, no acute distress, alert and awake Nutritional Appearance: well nourished Orientation/consciousness: oriented to person, oriented to place and oriented to time HENMT Ears: TM's normal bilaterally General nose exam: Normal nasal mucous membranes and turbinates present Eyes Conjunctivae: conjunctivae normal Sclerae: sclerae normal Pupils: Equal, round and reactive pupils present Neck Neck: Yes no lymphadenopathy and Yes no JVD Thyroid: Thyroid normal Carotids: no bruits Resp Effort & Inspection: normal respiratory effort and not tachypneic Auscultation: no crackles, no rales, no rhonchi and no wheezes Cardio Rate: regular rate Rhythm: regular rhythm Heart sounds: no murmurs and normal S1 and S2 GI Palpation (GI): Soft to palpation, nontender, no hepatomegaly and no splenomegaly Auscultation: normal bowel sounds Skin General skin exam: no rashes or lesions noted and dry skin Neuro General: oriented to person, oriented to place, oriented to time and CN's II-XI intact bilaterally Cranial nerves: Yes Equal, round and reactive pupils present Speech: No Abnormal speech present Gait exam (Neuro): Normal gait present Motor exam (neuro): no tremor noted Deep tendon reflexes (DTR's): Right triceps reflex intensity grade: 2+, Left triceps reflex intensity grade: 2+, Rt Biceps (C5, C6): 2+, Left biceps reflex intensity grade: 2+, Right brachioradialis reflex intensity grade: 2+, Left brachioradialis reflex intensity grade: 2+, Right patellar reflex intensity grade: 2+ and Left patellar reflex intensity grade: 2+ Extrem Right upper extremity: full ROM Left upper extremity: full ROM Right lower extremity: full ROM; no edema Left lower extremity: full ROM; no edema Psych Mental Status: mental status grossly normal Speech and movement: Normal speech and movement present Affect: normal affect Attitude: cooperative Thought process: Normal thought process present Coding Level of Care Code Est Pt Prev Care [id number]([id number]) Diagnoses Annual physical exam Z00.00 Bipolar 2 disorder F31.81 Depression, unspecified depression type F32.A Depression Type: unspecified Generalized anxiety disorder F41.1 Asthma, unspecified asthma severity, unspecified whether complicated, unspecified whether persistent J45.909 Asthma complication type: unspecified Asthma persistence: unspecified Asthma severity: unspecified severity Eczema, unspecified type L30.9 Eczema type: unspecified Elevated liver enzymes R74.8 Additional Codes RAYMOND-7 Assessment Billing - RAYMOND-7 Assessment Tool: RAYMOND-7 Assessment 63435 ([id number]) PHQ-9 - 93382 - PHQ-9 Billing: Yes ([id number]) Time Spent (min) 36 Assessment & Plan Assessment & Plan (1) Annual physical exam: Code(s): Z00.00 - Encounter for general adult medical examination without abnormal findings Category: Medical Plan: Preventative guidelines and last year labs reviewed with the patient. Orders placed for new labs to further evaluate. The patient is due for Pap smear and we will make an appointment. Not up-to-date it on dental or eye exam. Encouraged to get these evaluations completed. (2) Bipolar 2 disorder: Code(s): F31.81 - Bipolar II disorder Category: Medical Plan: History. Currently on no treatment. Denies SI/HI. Encouraged CBT (3) Depression: Code(s): F32.A - Depression, unspecified Category: Medical Qualifiers: Depression Type: unspecified Qualified Code(s): F32.A - Depression, unspecified Plan: Reports feeling depressed due to difficulty finding work prior. She is currently working and is feeling somewhat better but is still experiencing some depressive symptoms. We will refer the patient for counseling. (4) Generalized anxiety disorder: Code(s): F41.1 - Generalized anxiety disorder Category: Medical Plan: Encouraged CBT We will refer for counseling (5) Asthma: Code(s): J45.909 - Unspecified asthma, uncomplicated Category: Medical Qualifiers: Asthma complication type: unspecified Asthma persistence: unspecified Asthma severity: unspecified severity Qualified Code(s): J45.909 - Unspecified asthma, uncomplicated Plan: Reports some on and off shortness of breath and wheezing. Suspected untreated asthma. Longstanding history of allergies which might be causing the triggers. Started on Breo Ellipta 125 mcg/dose inhaler once a day and albuterol rescue inhaler as needed (6) Eczema: Code(s): L30.9 - Dermatitis, unspecified Category: Medical Qualifiers: Eczema type: unspecified Qualified Code(s): L30.9 - Dermatitis, unspecified Plan: Continue Dupixent Follow up with Dermatology as scheduled (7) Elevated liver enzymes: Code(s): R74.8 - Abnormal levels of other serum enzymes Category: Medical Plan: Denies abdominal pain Limit alcohol/drugs containing Tylenol or acetaminophen/fatty foods Liver panel ordered to further evaluate Orders: Orders Complete Blood Count Auto Diff 04/22/25.81 - Bipolar II disorder, F32.A - Depression, unspecified, F41.1 - Generalized anxiety disorder Lipid Panel 04/22/25.81 - Bipolar II disorder, F32.A - Depression, unspecified, F41.1 - Generalized anxiety disorder UA CC w/rflx Micro + Cult 04/22/25 F3.81 - Bipolar II disorder, F32.A - Depression, unspecified, F41.1 - Generalized anxiety disorder Vitamin D 25-OH Total 04/22/25.81 - Bipolar II disorder, F32.A - Depression, unspecified, F41.1 - Generalized anxiety disorder Transferrin 04/22/25.81 - Bipolar II disorder, F32.A - Depression, unspecified, F41.1 - Generalized anxiety disorder IRON PROFILE 04/22/25.81 - Bipolar II disorder, F32.A - Depression, unspecified, F41.1 - Generalized anxiety disorder Ceruloplasmin 04/22/25. - Bipolar II disorder, F32.A - Depression, unspecified, F41.1 - Generalized anxiety disorder Comprehensive [place]. Panel Fast 04/22/25.81 - Bipolar II disorder, F32.A - Depression, unspecified, F41.1 - Generalized anxiety disorder TSH reflex Free T4 04/22/25.81 - Bipolar II disorder, F32.A - Depression, unspecified, F41.1 - Generalized anxiety disorder Hepatitis A,B,C Profile 04/22/25. - Bipolar II disorder, F32.A - Depression, unspecified, F41.1 - Generalized anxiety disorder Smooth Muscle Antibody 04/22/25.81 - Bipolar II disorder, F32.A - Depression, unspecified, F41.1 - Generalized anxiety disorder Referrals Counseling Referral .81 - Bipolar II disorder, F32.A - Depression, unspecified, F41.9 - Anxiety disorder, unspecified Medications: New albuterol sulfate 90 mcg/actuation (Ventolin HFA) 2 puffs inhalation Q4-6H PRN 8.5 grams 3RF shortness of breath or wheezing fluticasone furoate-vilanterol 100-25 mcg/dose (Breo Ellipta) 1 inh inhalation DAILY 60 ea 3RF
[2025-04-22 11:07] VITALS: BP 98/60; PULSE 70; RESP 18; TEMP 36.2; O2SAT 96; BMI 27.2
== END 2025-04-22 11:49 | disposition home or self-care (01) ==
LOC: HO.HMCH 11:01
PROVIDERS: PCP Internal Medicine
DX: Z00.00 Encounter for general adult medical examination without abnormal findings (principal); F31.81 Bipolar II disorder; F41.1 Generalized anxiety disorder; J45.909 Unspecified asthma, uncomplicated; L30.9 Dermatitis, unspecified; R74.8 Abnormal levels of other serum enzymes

== ENCOUNTER → 2025-04-22 11:00 | Outpatient (BNVA) | payer OTHER, SELFPAY | PROVIDERS: PCP Internal Medicine | DX: Z00.00 Encounter for general adult medical examination without abnormal findings (principal); J45.909 Unspecified asthma, uncomplicated; F31.81 Bipolar II disorder; F41.1 Generalized anxiety disorder; L30.9 Dermatitis, unspecified; R74.8 Abnormal levels of other serum enzymes | CPT/HCPCS: 96127; 99395 ==